=== PATIENT | male | born 1980 | race Caucasian/White ===

== ENCOUNTER 2023-03-29 13:20 | Inpatient (IN) ==
--- NOTE | 2023-03-29 13:27 | ED Triage Note ---
Date of Service March 29, 2023 History of Present Illness This patient was briefly evaluated while in triage. An abbreviated physical exam was performed. This patient is a 43-year-old Male who presents to the ED for evaluation of ongoing diarrhea for the past few weeks. He notes stool is now all water. He now notes abdominal pain. NO recent antibiotic use. Seen Monday at [facility]. Has been using [facility] Physical Exam GENERAL: 43 year old male. In no acute distress. SKIN: No lesions or rashes. HEART: Regular rate and rhythm. LUNGS: Clear to auscultation. ABDOMEN: Bowel sounds normoactive. No guarding or rigidity. No tenderness of palpation. NEURO: Alert and oriented. No deficits. MUSCULOSKELETAL: No deformities to inspection of the extremities. PSYCH: Patient is pleasant and answers all questions appropriately. Initial orders for labs and / or imaging were placed and patient was placed in the waiting area until a bed is available. Please see further documentation for the full ED course.
[2023-03-29 14:18] LABS: Hematocrit (blood only) 36.8 % (42.0-52.0); Hemoglobin 12.6 g/dl (14.0-18.0); Mean Corpuscular Hemoglobin 29.2 pg (25.0-34.0); Mean Corpuscular Hgb Conc 34.2 g/dL (32.0-36.0); Mean Corpuscular Volume 85.4 fL (80.0-100.0); Mean Platelet Volume 9.8 fL (9.4-12.4); Platelet Count 432 K/uL (130-400); RDW Coefficient of Variation 12.5 % (11.5-14.5); RDW Standard Deviation 39.3 fL (36.4-46.3); Red Blood Count 4.31 M/uL (4.70-6.10); White Blood Count 14.59 K/ul (4.8-10.8)
[2023-03-29 14:29] LABS: Anion Gap 10 (3-11); BUN Creatinine Ratio 9.7 (10-20); Blood Urea Nitrogen 9 mg/dl (6-23); Calcium 8.7 mg/dl (8.6-10.3); Carbon Dioxide 28 mmol/L (21-32); Chloride 94 mmol/L (98-107); Creatinine Clr Calc Pharmacy 88.7 ml/min; Est GFR (African American) 116.9 ml/min; Est GFR (Non-African American) 100.9 ml/min; Glucose 129 mg/dl (70-99(Fasting)); Potassium 3.4 mmol/L (3.5-5.1); Sodium 132 mmol/L (136-145)
[2023-03-29 14:30] LABS: Alanine Aminotransferase 15 U/L (7-52); Albumin Globulin Ratio 0.9 (0.9-2); Albumin Level 3.3 gm/dl (3.4-5.0); Alkaline Phosphatase 67 U/L (34-104); Aspartate Aminotransferase 13 U/L (13-39); Bilirubin,Total 0.4 mg/dl (0.2-1.0); Globulin 3.5 gm/dl (2.5-4.0); Lipase < 3 U/L (11-82); Magnesium 1.8 mg/dl (1.7-2.4); Total Protein 6.8 gm/dl (6.0-8.3)
[2023-03-29 14:42] LABS: Basophils # (auto) 0.05 K/uL (0-0.2); Basophils % (auto) 0.3 %; Eosinophils # (auto) 0.08 K/uL (0-0.50); Eosinophils % (auto) 0.5 %; Immature Granulocytes # (auto) 0.12 K/uL (0.01-0.20); Immature Granulocytes % (auto) 0.8 %; Lymphocytes # (auto) 1.02 K/uL (1.2-3.4); Monocytes # (auto) 1.73 K/uL (0.11-0.59); Monocytes % (auto) 11.9 %; Neutrophils # (auto) 11.59 K/uL (1.40-6.50); Neutrophils % (auto) 79.5 %
--- NOTE | 2023-03-29 15:35 | Emergency Department Note ---
Impression & Plan Colitis, Nausea vomiting and diarrhea ED Provider Note INFORMANT: Patient ED PROVIDER(S): Jack Madrigal DO CHIEF COMPLAINT: Diarrhea PLAN: Disposition: Admission Outpatient prescription management: none Discussion with: I spoke with the hospitalist, who will see the patient for admission/observation and further evaluation and consultation. MEDICAL DECISION MAKING: This is a 43-year-old male who presents to the ED with a chief complaint of diarrhea. The symptoms started initially about 3 weeks ago. He states that he would pass some liquid gas. The patient states that about 2 weeks ago he started having liquid stools fairly consistently. He also reports some abdominal pain for the past week. He also states that he has been passing some blood in his stools recently. He states that he feels tired. Imodium does not help. Reports a decreased appetite over the past few days with nausea with p.o. intake. He feels that his symptoms are worsening. He had some blood work and stool studies done on Monday at [facility]. His white blood cell count at that time was 23.3. Hemoglobin is 13.3. Platelet count was 450. E. coli and Shiga toxin was not detected. C. difficile was not detected. CT scan of abdomen pelvis reveals moderate wall thickening of the splenic flexure of the colon descending colon, sigmoid colon and proximal rectum with pericolonic stranding fluid. This could be nonspecific colitis although ulcerative colitis is also in the differential. Associated moderate dilatation of the ascending colon and transverse colon without bowel obstruction. Large amount of stool in the cecum and ascending colon. Prominent pericolonic and perirectal lymph nodes. Could be reactive although underlying neoplasm is hard to exclude. GI panel was negative. Leukocytosis today 14.59. Hemoglobin is 12.6. Chemistry panel showed no significant electrolyte abnormalities. Lipase was negative. The patient was told the results. Based on the patient's symptoms and overall evaluation abnormalities on imaging, I feel the patient would be best served by inpatient evaluation and GI investigation. Triage Nursing notes reviewed. Vital Signs: reviewed Prior /Outside records reviewed: Records from [facility] laboratory reviewed. Differential diagnosis: Dehydration, electrolyte abnormality,Inflammatory bowel disease, viral syndrome, other. Diagnostics, as interpreted by me: 12 lead ECG: none Cardiac Monitoring ordered: none Medical decision rules: none Imaging studies: CT scan of the abdomen pelvis: No obstruction. See radiologist report. Procedures: none. Critical care: none. HPI: See MDM above. PAST MEDICAL HISTORY: See Below PAST SURGICAL HISTORY: See Below SOCIAL HISTORY: See Below HOME MEDICATIONS:See Below ALLERGIES: See Below VITALS: See Below PHYSICAL EXAMINATION: See MDM for positive findings otherwise unremarkable. CONSTITUTIONAL/VITAL SIGNS: Reviewed GENERAL:done as appropriate INTEGUMENTARY: done as appropriate HEAD: done as appropriate EYES: done as appropriate RESPIRATORY: done as appropriate CARDIOVASCULAR:done as appropriate GI/ABDOMEN:done as appropriate EXTREMITIES: done as appropriate NEUROLOGICAL: done as appropriate PSYCHIATRIC:done as appropriate MUSCULOSKELETAL:done as appropriate TRIAGE NURSING DOCUMENTATION REVIEWED. Past Med/Surg History Social History Smoking Status: Never smoker Feels Safe at Home: Yes Allergies Allergies Allergy/AdvReac Type Severity Reaction Status Date / Time No Known Allergies Allergy Verified 03/29/23 15:39 Home Meds Home Medications Medication Instructions Recorded Confirmed loperamide 2 mg tablet 2 mg PO DIRECTED PRN Diarrhea 03/29/23 03/29/23 simethicone 125 mg capsule 125 mg PO DIRECTED PRN GAS 03/29/23 03/29/23 DISCOMFORT Results & Data (ED) Vital Signs Vital Signs - 24 hr 03/29/23 13:25 03/29/23 15:01 03/29/23 15:04 Temperature 37.2 C Temperature Source Temporal Artery Scan Pulse Rate 106 H 90 90 Pulse Rate from SpO2 Sensor 92 H 91 H Respiratory Rate 18 16 19 Respiratory Effort / Characteristics Non-Labored Spontaneous Respiratory Depth Normal Respiratory Pattern Regular Blood Pressure 113/70 Blood Pressure Mean 84 Blood Pressure Position Sitting Pulse Oximetry 99 99 98 Oxygen Delivery Method Room Air Sepsis Recent Fever Within 48 Hours No Sepsis New/Unexplained Change in Mental Status N/A Sepsis Action Taken by Nursing No Action Required 03/29/23 15:04 03/29/23 15:00 03/29/23 15:15 Temperature Temperature Source Pulse Rate 89 88 Pulse Rate from SpO2 Sensor 88 Respiratory Rate 17 Respiratory Effort / Characteristics Respiratory Depth Respiratory Pattern Blood Pressure 125/73 Blood Pressure Mean 92 Blood Pressure Position Pulse Oximetry 99 Oxygen Delivery Method Sepsis Recent Fever Within 48 Hours Sepsis New/Unexplained Change in Mental Status Sepsis Action Taken by Nursing 03/29/23 15:30 03/29/23 15:30 03/29/23 15:45 Temperature Temperature Source Pulse Rate 94 H Pulse Rate from SpO2 Sensor 95 H 84 Respiratory Rate 22 Respiratory Effort / Characteristics Respiratory Depth Respiratory Pattern Blood Pressure 120/77 Blood Pressure Mean 95 Blood Pressure Position Pulse Oximetry 99 99 Oxygen Delivery Method Sepsis Recent Fever Within 48 Hours Sepsis New/Unexplained Change in Mental Status Sepsis Action Taken by Nursing 03/29/23 16:00 03/29/23 16:15 03/29/23 16:30 Temperature Temperature Source Pulse Rate Pulse Rate from SpO2 Sensor 88 87 93 H Respiratory Rate Respiratory Effort / Characteristics Respiratory Depth Respiratory Pattern Blood Pressure Blood Pressure Mean Blood Pressure Position Pulse Oximetry 100 100 98 Oxygen Delivery Method Sepsis Recent Fever Within 48 Hours Sepsis New/Unexplained Change in Mental Status Sepsis Action Taken by Nursing 03/29/23 16:45 03/29/23 17:00 03/29/23 17:15 Temperature Temperature Source Pulse Rate Pulse Rate from SpO2 Sensor 86 86 84 Respiratory Rate Respiratory Effort / Characteristics Respiratory Depth Respiratory Pattern Blood Pressure Blood Pressure Mean Blood Pressure Position Pulse Oximetry 100 100 100 Oxygen Delivery Method Sepsis Recent Fever Within 48 Hours Sepsis New/Unexplained Change in Mental Status Sepsis Action Taken by Nursing 03/29/23 17:30 03/29/23 17:45 03/29/23 18:01 Temperature Temperature Source Pulse Rate 87 98 H Pulse Rate from SpO2 Sensor 85 86 Respiratory Rate 19 21 Respiratory Effort / Characteristics Respiratory Depth Respiratory Pattern Blood Pressure Blood Pressure Mean Blood Pressure Position Pulse Oximetry 98 100 Oxygen Delivery Method Sepsis Recent Fever Within 48 Hours Sepsis New/Unexplained Change in Mental Status Sepsis Action Taken by Nursing 03/29/23 18:15 03/29/23 18:30 03/29/23 18:30 Temperature Temperature Source Pulse Rate 89 91 H Pulse Rate from SpO2 Sensor Respiratory Rate 18 20 Respiratory Effort / Characteristics Respiratory Depth Respiratory Pattern Blood Pressure 117/73 Blood Pressure Mean 83 Blood Pressure Position Pulse Oximetry Oxygen Delivery Method Sepsis Recent Fever Within 48 Hours Sepsis New/Unexplained Change in Mental Status Sepsis Action Taken by Nursing Laboratory Data 03/29/23 13:32 03/29/23 13:32 Lab Results 03/29/23 03/29/23 03/29/23 Range/Units 13:32 13:32 16:07 WBC 14.59 H (4.8-10.8) K/ul RBC 4.31 L (4.70-6.10) M/uL Hgb 12.6 L (14.0-18.0) g/dl Hct 36.8 L (42.0-52.0) % MCV 85.4 (80.0-100.0) fL MCH 29.2 (25.0-34.0) pg MCHC 34.2 (32.0-36.0) g/dL RDW Std Deviation 39.3 (36.4-46.3) fL RDW Coeff of Teresita 12.5 (11.5-14.5) % Plt Count 432 H (130-400) K/uL MPV 9.8 (9.4-12.4) fL Immature Gran % (Auto) 0.8 % Neut % (Auto) 79.5 % Lymph % (Auto) 7.0 % Vance % (Auto) 11.9 % Eos % (Auto) 0.5 % Baso % (Auto) 0.3 % Neut # (Auto) 11.59 H (1.40-6.50) K/uL Lymph # (Auto) 1.02 L (1.2-3.4) K/uL Vance # (Auto) 1.73 H (0.11-0.59) K/uL Eos # (Auto) 0.08 (0-0.50) K/uL Baso # (Auto) 0.05 (0-0.2) K/uL Immature Gran # (Auto) 0.12 (0.01-0.20) K/uL Sodium 132 L (136-145) mmol/L Potassium 3.4 L (3.5-5.1) mmol/L Chloride 94 L (98-107) mmol/L Carbon Dioxide 28 (21-32) mmol/L Anion Gap 10 (3-11) BUN 9 (6-23) mg/dl Creatinine 0.93 (0.6-1.4) mg/dl Est Cr Clr Drug Dosing 88.7 ml/min Est GFR ( Amer) 116.9 ml/min Est GFR (Non-Af Amer) 100.9 ml/min BUN/Creatinine Ratio 9.7 L (10-20) Glucose 129 H (70-99(Fasting)) mg/dl Calcium 8.7 (8.6-10.3) mg/dl Magnesium 1.8 (1.7-2.4) mg/dl Total Bilirubin 0.4 (0.2-1.0) mg/dl AST 13 (13-39) U/L ALT 15 (7-52) U/L Alkaline Phosphatase 67 (34-104) U/L Total Protein 6.8 (6.0-8.3) gm/dl Albumin 3.3 L (3.4-5.0) gm/dl Globulin 3.5 (2.5-4.0) gm/dl Albumin/Globulin Ratio 0.9 (0.9-2) Lipase < 3 L (11-82) U/L Stl C. cayetanensis PCR (NotDetected) Stool Rotavirus A PCR (NotDetected) Stl Adenov F 40/41 PCR (NotDetected) Stool Astrovirus (PCR) (NotDetected) Stool Campylobacter PCR (NotDetected) Stl C. diff Tox B Gene Negative Cdiff Gene (Neg) Stool Cryptosporidium PCR (NotDetected) Stl E.coli Shiga Tox PCR (NotDetected) Stl Enterotoxigenic E PCR (NotDetected) Stool EPEC (PCR) (NotDetected) Stool EAEC (PCR) (NotDetected) Stl E. histolytica PCR (NotDetected) Stool Giardia Lamblia PCR (NotDetected) Stool Salmonella PCR (NotDetected) Stool Sapovirus (PCR) (NotDetected) Stl P. shigelloides PCR (NotDetected) Stl Shigella/EIEC PCR (NotDetected) St Y.enterocolitica PCR (NotDetected) Stool Vibrio (PCR) (NotDetected) Stl Vibrio cholerae PCR (NotDetected) Stl Norovirus GI/GII PCR (NotDetected) 03/29/23 Range/Units 16:07 WBC (4.8-10.8) K/ul RBC (4.70-6.10) M/uL Hgb (14.0-18.0) g/dl Hct (42.0-52.0) % MCV (80.0-100.0) fL MCH (25.0-34.0) pg MCHC (32.0-36.0) g/dL RDW Std Deviation (36.4-46.3) fL RDW Coeff of Teresita (11.5-14.5) % Plt Count (130-400) K/uL MPV (9.4-12.4) fL Immature Gran % (Auto) % Neut % (Auto) % Lymph % (Auto) % Vance % (Auto) % Eos % (Auto) % Baso % (Auto) % Neut # (Auto) (1.40-6.50) K/uL Lymph # (Auto) (1.2-3.4) K/uL Vance # (Auto) (0.11-0.59) K/uL Eos # (Auto) (0-0.50) K/uL Baso # (Auto) (0-0.2) K/uL Immature Gran # (Auto) (0.01-0.20) K/uL Sodium (136-145) mmol/L Potassium (3.5-5.1) mmol/L Chloride (98-107) mmol/L Carbon Dioxide (21-32) mmol/L Anion Gap (3-11) BUN (6-23) mg/dl Creatinine (0.6-1.4) mg/dl Est Cr Clr Drug Dosing ml/min Est GFR ( Amer) ml/min Est GFR (Non-Af Amer) ml/min BUN/Creatinine Ratio (10-20) Glucose (70-99(Fasting)) mg/dl Calcium (8.6-10.3) mg/dl Magnesium (1.7-2.4) mg/dl Total Bilirubin (0.2-1.0) mg/dl AST (13-39) U/L ALT (7-52) U/L Alkaline Phosphatase (34-104) U/L Total Protein (6.0-8.3) gm/dl Albumin (3.4-5.0) gm/dl Globulin (2.5-4.0) gm/dl Albumin/Globulin Ratio (0.9-2) Lipase (11-82) U/L Stl C. cayetanensis PCR Not Detected (NotDetected) Stool Rotavirus A PCR Not Detected (NotDetected) Stl Adenov F 40/41 PCR Not Detected (NotDetected) Stool Astrovirus (PCR) Not Detected (NotDetected) Stool Campylobacter PCR Not Detected (NotDetected) Stl C. diff Tox B Gene (Neg) Stool Cryptosporidium PCR Not Detected (NotDetected) Stl E.coli Shiga Tox PCR Not Detected (NotDetected) Stl Enterotoxigenic E PCR Not Detected (NotDetected) Stool EPEC (PCR) Not Detected (NotDetected) Stool EAEC (PCR) Not Detected (NotDetected) Stl E. histolytica PCR Not Detected (NotDetected) Stool Giardia Lamblia PCR Not Detected (NotDetected) Stool Salmonella PCR Not Detected (NotDetected) Stool Sapovirus (PCR) Not Detected (NotDetected) Stl P. shigelloides PCR Not Detected (NotDetected) Stl Shigella/EIEC PCR Not Detected (NotDetected) St Y.enterocolitica PCR Not Detected (NotDetected) Stool Vibrio (PCR) Not Detected (NotDetected) Stl Vibrio cholerae PCR Not Detected (NotDetected) Stl Norovirus GI/GII PCR Not Detected (NotDetected) Administered Medications Discontinued Medications Ioversol (Optiray 320 100ml) 88 ml IV ONCE ONE Stop: 03/29/23 17:59 Last Admin: 03/29/23 17:59 Dose: 88 ml Documented By: YAMILETH Imaging Data Radiologist's Impression: Abdomen/Pelvis CT 03/29/23 14:35 CT OF THE ABDOMEN AND PELVIS WITH CONTRAST CLINICAL HISTORY: diarrhea, blood in stools, weight loss COMPARISON STUDY: None. TECHNIQUE: Following IV administration of 88 mL of Optiray, axial images of the abdomen and pelvis were obtained from the lung bases to the proximal femurs. Images were reviewed in the axial, sagittal, and coronal planes. IV contrast was administered without complication. Automated exposure control was utilized for the study. A dose lowering technique was utilized adhering to the principles of ALARA. Oral contrast was administered. CT DOSE: 455.26 mGy.cm FINDINGS: Lung bases are unremarkable. No pneumatosis, free air or portal venous gas is present. The liver, spleen, adrenal glands, kidneys and pancreas are unremarkable. There is no biliary or pancreatic ductal dilatation. There are gallstones within the gallbladder. The gallbladder is not distended. Note is made of moderate wall thickening of the splenic flexure of the colon, the descending colon and the sigmoid colon and proximal rectum with pericolonic stra nding and trace pericolonic fluid. There is a large amount stool within the cecum and ascending colon. The ascending colon and transverse colon are mildly dilated. No well-defined transition point is identified. There is no abscess. Note is made of a mildly enlarged left pelvic sidewall lymph node on image [phone] of [phone] that measures 1.2 x 1 cm. There are additional prominent perirectal/pericolonic lymph nodes. Major vasculature is patent. IMPRESSION: 1. Moderate wall thickening of the splenic flexure of the colon, the descending colon, sigmoid colon and proximal rectum with pericolonic stranding and fluid. The finding represents a nonspecific colitis. Differential considerations include an infectious colitis. Ulcerative colitis is also within the differential. Associated moderate dilatation of the ascending colon and transverse colon without convincing evidence for a bowel obstruction. Large amount of stool within the cecum and ascending colon. 2. Prominent pericolonic and perirectal lymph nodes, including a left pelvic sidewall lymph node. These may be reactive. However, an occult underlying neoplasm within the colon would be difficult to exclude. GI consultation for consideration for nonemergent colonoscopy is recommended. 3. Cholelithiasis. ACT 112: Positive. There are findings on this exam that require communication between the performing entity and the patient following Patient Test Result Information Act ([place] Act 112) guidelines. Electronically signed by: Chris Amaya M.D. 03/29/2023 6:26 PM Discharge Plan Visit Data Chief Complaint: Diarrhea Stated Complaint: DIARRHEA,NAUSEA,ABDOMINAL PAIN,LETHARGIC ED Provider: Jack Madrigal Discharge Problem: Colitis, Nausea vomiting and diarrhea Patient Disposition: Being Evaluated by Hospitalist Forms Stand Alone Forms: [facility] Prescriptions Prescriptions: No Action loperamide [Anti-Diarrhea] 2 mg Tablet 2 mg PO DIRECTED PRN (Reason: Diarrhea) simethicone [Anti-Gas] 125 mg Capsule 125 mg PO DIRECTED PRN (Reason: GAS DISCOMFORT) Referrals Referrals: PCP,NO [Primary Care Provider] -
[2023-03-29 17:58] LABS: Adenovirus F 40/41 PCR Not Detected (NotDetected); Astrovirus PCR Not Detected (NotDetected); Campylobacter PCR Not Detected (NotDetected); Cryptosporidium PCR Not Detected (NotDetected); Cyclospora cayetanensis PCR Not Detected (NotDetected); Entamoeba histolytica PCR Not Detected (NotDetected); Enteroaggregative E.coli(EAEC) Not Detected (NotDetected); Enteropathogenic E.coli (EPEC) Not Detected (NotDetected); Enterotoxigenic E.coli (ETEC) Not Detected (NotDetected); Giardia lamblia PCR Not Detected (NotDetected); Norovirus GI/GII PCR Not Detected (NotDetected); Plesiomonas shigelloides PCR Not Detected (NotDetected); Rotavirus A PCR Not Detected (NotDetected); Salmonella PCR Not Detected (NotDetected); Sapovirus PCR Not Detected (NotDetected); Shiga-like Toxin E.coli (STEC) Not Detected (NotDetected); Shigella/Enteroinvasive E.coli Not Detected (NotDetected); Vibrio cholerae PCR Not Detected (NotDetected); Vibrio species PCR Not Detected (NotDetected); Yersinia enterocolitica PCR Not Detected (NotDetected)
[2023-03-29] MEDS ORDERED: OPTIRAY 320 100ml IV ONE (17:58)
--- NOTE | 2023-03-29 18:28 | CT Scan Report ---
CT OF THE ABDOMEN AND PELVIS WITH CONTRAST CLINICAL HISTORY: diarrhea, blood in stools, weight loss COMPARISON STUDY: None. TECHNIQUE: Following IV administration of 88 mL of Optiray, axial images of the abdomen and pelvis we re obtained from the lung bases to the proximal femurs. Images were reviewed in the axial, sagittal, and coronal planes. IV contrast was administered without complication. Automated exposure control wa s utilized for the study. A dose lowering technique was utilized adhering to the principles of ALARA . Oral contrast was administered. CT DOSE: 455.26 mGy.cm FINDINGS: Lung bases are unremarkable. No pneumatosis, free air or portal venous gas is present. The liver, spleen, adrenal glands, kidneys and pancreas are unremarkable. There is no biliary or pancreat ic ductal dilatation. There are gallstones within the gallbladder. The gallbladder is not distended. Note is made of moderate wall thickening of the splenic flexure of the colon, the descending colon an d the sigmoid colon and proximal rectum with pericolonic stranding and trace pericolonic fluid. There is a large amount stool within the cecum and ascending colon. The ascending colon and transverse col on are mildly dilated. No well-defined transition point is identified. There is no abscess. Note is m aziza of a mildly enlarged left pelvic sidewall lymph node on image [phone] of [phone] that measures 1.2 x 1 cm . There are additional prominent perirectal/pericolonic lymph nodes. Major vasculature is patent. IMPRESSION: 1. Moderate wall thickening of the splenic flexure of the colon, the descending colon, sigmoid colon and proximal rectum with pericolonic stranding and fluid. The finding represents a nonspecific coliti s. Differential considerations include an infectious colitis. Ulcerative colitis is also within the d ifferential. Associated moderate dilatation of the ascending colon and transverse colon without convi ncing evidence for a bowel obstruction. Large amount of stool within the cecum and ascending colon. 2. Prominent pericolonic and perirectal lymph nodes, including a left pelvic sidewall lymph node. The se may be reactive. However, an occult underlying neoplasm within the colon would be difficult to exc lude. GI consultation for consideration for nonemergent colonoscopy is recommended. 3. Cholelithiasis. ACT 112: Positive. There are findings on this exam that require communication between the performing entity and the patient following Patient Test Result Information Act ([place] Act 112) guidelines. Electronically signed by: Chris Amaya M.D. 03/29/2023 6:26 PM
[2023-03-29] MEDS ORDERED: SODIUM CHLORIDE 0.9% 1000ML 1,000 ML IV ONE (19:00)
[2023-03-29 19:43] LABS: Appearance Urine Clear (Clear); Bilirubin Urine Negative (Negative); Blood Urine Negative (Negative); Color Urine Yellow; Glucose Urine UA Negative (Negative); Ketones Urine Negative (Negative); Leukocyte Esterase Urine Negative (Negative); Nitrite Urine Negative (Negative); Protein Urine Negative (Negative); Specific Gravity Urine > 1.045 (1.000-1.030); Urobilinogen Urine Negative (Negative)
--- NOTE | 2023-03-29 19:51 | History & Physical Report ---
Date of Service March 29, 2023 Assessment & Plan (1) Colitis: Plan: -CTAP with findings suggestive of nonspecific colitis although UC in differential -Stool studies negative -Pt with leukocytosis on admission and elevated CRP from PCP labs. Ordered ESR, CRP, fecal calprotectin -Pt currently hemodynamically stable, afebrile -Supportive care- IVF hydration, Tylenol PRN pain, Zofran PRN nausea -Clear liquid diet, advance as tolerated -GI consult placed for evaluation of potential IBD -F/u on rest of outpatient labs at [facility] -Pt will need follow-up colonoscopy as outpatient (2) Hypokalemia: Plan: -K 3.2 on admission, likely 2/2 GI losses -Repleted on admission -Monitor BMP (3) Hyponatremia: Plan: -Na 132, likely due to poor oral intake -NSS hydration -Monitor BMP (4) Dehydration: Plan: -Pt with weeks of GI losses and reduced oral intake -NSS + KCl repletion ongoing (5) Anemia: Plan: -Hgb 12.6 on admission -Mild normocytic anemia -Suspect due to bleeding hemorrhoid, lower suspicion for occult GI bleed -Trend CBC Plan FENGI: Clear liquids Code status: Full DVT ppx: SCDs, deferring chemoprophylaxis given hematochezia Isolation: None Dispo: Medical/surgical History of Present Illness Chief Complaint: diarrhea Primary Care Provider: DARYL PCP Pt is 43 yo M with PMH internal hemorrhoids presenting with diarrhea. Notes onset 3 weeks prior of watery diarrhea and associated bloating, generalized abdominal pain, nausea w/o emesis, subjective fevers, chills. Denies recent travel, sick contacts or change in diet. Over past week his symptoms worsened to include hematochezia and reduced appetite. Reports 4+ movements per day, no relief from imodium. Pt did see PCP on 03/27 who ordered labs and stool studies- WBC 23 w/ neutrophilic predominance, CRP > 10, negative IgA, TTG studies (several other studies still pending), negative stool studies including E Coli and C difficile. Pt's symptoms continued to worsen and he came to ER for evaluation. Pt arrived to ER hemodynamically stable. Initial evaluation significant for WBC 15, Hgb 12.6, Na 132, K 3.4. Negative stool PCR. CTAP suggesting nonspecific colitis although ulcerative colitis in differential, dilatation of ascending and transverse colon without obstruction, large amount of stool in cecum and ascending colon, prominent pericolonic and perirectal lymph nodes which may be reactive but underlying neoplasm hard to exclude. ER interventions include 1L NSS bolus. At present, pt reports continued moderate abdominal pain and diarrhea. He does state he's had intermittent diarrhea and abdominal cramps for much of his life but denies any history of IBD in his family. Did have colonoscopy 6-7 years prior which showed internal hemorrhoids. Allergies Allergy/AdvReac Type Severity Reaction Status Date / Time No Known Allergies Allergy Verified 03/29/23 15:39 Home Medications Medication Instructions Recorded Confirmed Type loperamide 2 mg tablet 2 mg PO DIRECTED PRN Diarrhea 03/29/23 03/29/23 History simethicone 125 mg capsule 125 mg PO DIRECTED PRN GAS 03/29/23 03/29/23 History DISCOMFORT Past Med/Surg History Social History Smoking Status: Never smoker Hx Alcohol Use: No Hx Substance Use: No Preferred Language: Albanian Communication Ability: Effective Service Operator Required: No Beliefs That Will Affect Care: None Current Living Situation: Alone Other Information That Helps Us Care for You: No Feels Safe at Home: Yes Safety Concerns: Feels Safe At This Time Assistive Devices: None Review of Systems Review of Systems: Per HPI/Subjective Physical Exam Physical Exam: General: well-appearing, no acute distress HEENT: PERRL, EOMI, conjunctivae clear without injection, anicteric sclerae, moist mucous membranes, clear oropharynx without exudate or erythema Neck: supple, trachea midline, no thyromegaly, no JVD, no cervical lymphadenopathy CV: RRR, normal S1 and S2, no murmurs Resp: CTAB, no increased work of breathing, no crackles or wheezes Abd: Soft, nontender, nondistended, no guarding or rebound, no hepatosplenomegaly, hyperactive bowel sounds MSK: Normal bulk of all four extremities Neuro: AOx3, no focal motor or sensory deficits Skin: no rashes or lesions, warm and dry Ext: no LE peripheral edema or erythema, capillary refill <2s in all four extremities, 2+ LE peripheral pulses b/l Results & Data Results & Data Vital Signs (Past 12 Hours) Vital Signs Temp Pulse Resp BP Pulse Ox O2 Del Method 03/29/23 19:15 91 H 17 03/29/23 19:00 92 H 15 03/29/23 19:00 122/73 03/29/23 18:45 86 24 03/29/23 18:30 91 H 20 03/29/23 18:30 117/73 03/29/23 18:15 89 18 03/29/23 18:01 98 H 21 03/29/23 17:45 87 19 100 03/29/23 17:30 98 03/29/23 17:15 100 03/29/23 17:00 100 03/29/23 16:45 100 03/29/23 16:30 98 03/29/23 16:15 100 03/29/23 16:00 100 03/29/23 15:45 99 03/29/23 15:30 94 H 22 99 03/29/23 15:30 120/77 03/29/23 15:15 88 17 99 03/29/23 15:00 89 03/29/23 15:04 125/73 03/29/23 15:04 90 19 98 03/29/23 15:01 90 16 99 03/29/23 13:25 37.2 C 106 H 18 113/70 99 Room Air Code Status & VTE Plan VTE Prophylaxis Plan VTE Prophylaxis will be ordered: Yes Supervising Physician Co-Signing Physician Notes Nonspecific colitis- As noted on CT abdomen/pelvis Stool PCR negative Clear liquid diet IV fluids as noted Consult gastroenterology, will need colonoscopy. Reports having a colonoscopy primarily showing hemorrhoids in 2016 Differential includes but not limited to inflammatory bowel disease, viral, infectious, other Hypokalemia/dehydration- Potassium 3.4 on admission Placed on IV fluids as noted, normal saline + KCl 20 mg once at 100 mils per hour recheck laboratories in a.m. Remaining orders and notations as noted Resident Activity Tracking Resident Involvement: Resident Care Provided Care Provided: Adult Hospital Medicine
[2023-03-29] MEDS ORDERED: ONDANSETRON INJ 2 MG/ML 2 ML VIAL IV PRN (23:01)
[2023-03-29] MEDS ORDERED: ACETAMINOPHEN 1,000 MG/100 ML VIAL IV PRN (23:01)
[2023-03-29] MEDS ORDERED: SIMETHICONE 80 MG CHEW PO PRN (23:35)
[2023-03-29] MEDS: NSS + 20MEQ KCL 20 MEQ/1,000 ML BAG IV SCH (23:46)
--- NOTE | 2023-03-30 | Communication Note ---
Date of Service: March 29, 2023 Pt COVID swab returned positive. Isolation precautions ordered. Deferring steroids/remdesivir at present. Stable respiratory status on RA.
[2023-03-30] MEDS ORDERED: cefTRIAXone SODIUM 2,000 MG in DEXTROSE 5% AD-VAN 50 ML IV SCH (02:00)
[2023-03-30] MEDS: cefTRIAXone SODIUM 1,000 MG in DEXTROSE 5% AD-VAN 50 ML IV SCH (02:06)
[2023-03-30] MEDS: metroNIDAZOLE 500 MG/100 ML BAG IV SCH ×3 (02:38→18:07)
[2023-03-30 07:01] LABS: Hematocrit (blood only) 33.2 % (42.0-52.0); Hemoglobin 11.3 g/dl (14.0-18.0); Mean Corpuscular Hemoglobin 29.4 pg (25.0-34.0); Mean Corpuscular Volume 86.2 fL (80.0-100.0); Mean Platelet Volume 9.5 fL (9.4-12.4); Platelet Count 352 K/uL (130-400); RDW Coefficient of Variation 12.6 % (11.5-14.5); RDW Standard Deviation 39.6 fL (36.4-46.3); Red Blood Count 3.85 M/uL (4.70-6.10); White Blood Count 11.74 K/ul (4.8-10.8)
[2023-03-30 07:32] LABS: BUN Creatinine Ratio 12.7 (10-20); C Reactive Protein 17.42 mg/dl (0-0.5); Calcium 7.9 mg/dl (8.6-10.3); Creatinine Clr Calc Pharmacy 116.2 ml/min; Est GFR (African American) 134.1 ml/min; Est GFR (Non-African American) 115.7 ml/min; Magnesium 1.9 mg/dl (1.7-2.4); Phosphorus 2.5 mg/dl (2.5-4.9); Potassium 3.5 mmol/L (3.5-5.1)
[2023-03-30 07:41] LABS: Basophils # (auto) 0.04 K/uL (0-0.2); Basophils % (auto) 0.3 %; Dohle Bodies 1+; Eosinophils # (auto) 0.04 K/uL (0-0.50); Eosinophils % (auto) 0.3 %; Immature Granulocytes # (auto) 0.06 K/uL (0.01-0.20); Immature Granulocytes % (auto) 0.5 %; Lymphocytes # (auto) 0.73 K/uL (1.2-3.4); Lymphocytes % (auto) 6.2 %; Monocytes # (auto) 1.81 K/uL (0.11-0.59); Monocytes % (auto) 15.4 %; Neutrophils # (auto) 9.06 K/uL (1.40-6.50); Neutrophils % (auto) 77.3 %
--- NOTE | 2023-03-30 09:51 | Communication Note ---
Date of Service: March 30, 2023 Patient is a 43 year old male who presented to the ED with complaints of 3 weeks of diarrhea, generalized abdominal pain, bloating, nausea, vomiting, fevers, chills, and hematochezia. He had evaluation in the ED and stool biofire testing was negative. CT of abdomen and pelvis shown moderate wall thickening of the splenix flexure of the colon, the descending colon, sigmoid colon, and proximal rectum with pericolonic stranding and fluid representing a nonspecific colitis. differential includes infectious colitis as well as UC. There is also associated moderate dilation of the ascending colon and transverse colon without convincing evidence for a bowel obstruction. large amount of stool within the cecum and the ascending colon. There is prominent pericolonic and perirectal lymph nodes, unclduing a left pelvic sidewall lymph node. these may be reactive however an occult underlying neoplasm within the colon would be difficult to exclude. nonemergenct colonoscopy is recommended. Since evaluation here he was found to be covid positive. Discussed case with Dr. Posada who advised on plan. This may be more infectious in nature. Would continue with ceftriaxone/flagyl. Leukocytosis is improving. Patient will need outpatient colonoscopy once recovered from Covid. Exam deferred given positive covid results.
[2023-03-30] MEDS: NSS + 20MEQ KCL 20 MEQ/1,000 ML BAG IV SCH (10:34)
--- NOTE | 2023-03-30 16:23 | Hospitalist Progress Note ---
Date of Service March 30, 2023 Assessment & Plan (1) Colitis: Plan: -CTAP with findings suggestive of nonspecific colitis although UC in differential -Stool studies negative -Pt with leukocytosis on admission and elevated CRP from PCP labs. Ordered ESR, CRP, fecal calprotectin. White count coming down. -Pt currently hemodynamically stable, afebrile -Supportive care- IVF hydration, Tylenol PRN pain, Zofran PRN nausea -Clear liquid diet, advance as tolerated Continue ceftriaxone and Flagyl -GI consult placed for evaluation of potential IBD. GI leaning towards infectious cause. -F/u on rest of outpatient labs at [facility] -Pt will need follow-up colonoscopy as outpatient (2) Hypokalemia: Plan: -K 3.2 on admission, likely 2/2 GI losses -Repleted on admission -Monitor BMP (3) Hyponatremia: Plan: -Na 132, likely due to poor oral intake -NSS hydration -Monitor BMP Improved (4) Dehydration: Plan: -Pt with weeks of GI losses and reduced oral intake -NSS + KCl repletion ongoing (5) Anemia: Plan: -Hgb 12.6 on admission -Mild normocytic anemia -Suspect due to bleeding hemorrhoid, lower suspicion for occult GI bleed -Trend CBC (6) COVID-19: Plan: Tested positive Asymptomatic Monitor clinically Plan FENGI: Clear liquids Code status: Full DVT ppx: SCDs, deferring chemoprophylaxis given hematochezia Isolation: None Dispo: Medical/surgical Admission and Anticipated Discharge Date Admission Date: March 29, 2023 Subjective Patient feels slightly better. However still having diarrhea. Abdominal pain is improving. No shortness of breath or cough. No chest pain. He tested positive for COVID but he is completely asymptomatic. Review of Systems Review of Systems: All systems reviewed & are unremarkable except as noted in Subjective Physical Exam Physical Exam: General: Awake, conversant Heart: S1, S2/regular rate and rhythm, no murmur rubs or gallops Lungs: Clear to auscultation bilaterally. Normal effort Abdomen: Soft/nontender/nondistended. No hepatosplenomegaly Extremities: No clubbing/cyanosis. No edema Behavior: Appropriate, cooperative Results & Data Results & Data Vital Signs (Past 12 Hours) Vital Signs Temp Pulse Resp BP Pulse Ox O2 Del Method 05/25/23 08:51 37.5 C 89 18 113/72 96 Room Air PG Care Time/CCT Total # of Minutes Spent Total Time Spent with Patient: Total time spent is greater than 50% in coordination of care (as documented) at patient's floor/unit and/or counseling patient: Coding Level of Care Code 18560 SUB INP/OBS CARE 2/35MIN Diagnoses Colitis K52.9 Hypokalemia E87.6 Hyponatremia E87.1 Dehydration E86.0 Anemia D64.9 COVID-19 U07.1
--- NOTE | 2023-03-30 22:01 | Billing Data ---
Date of Service March 30, 2023 Coding Level of Care Code 72109 INT INP/OBS CARE
[2023-03-31] MEDS: cefTRIAXone SODIUM 1,000 MG in DEXTROSE 5% AD-VAN 50 ML IV SCH (01:05)
[2023-03-31] MEDS: metroNIDAZOLE 500 MG/100 ML BAG IV SCH ×3 (01:38→19:55)
[2023-03-31 09:57] LABS: Hematocrit (blood only) 35.5 % (42.0-52.0); Hemoglobin 11.9 g/dl (14.0-18.0); Mean Corpuscular Hemoglobin 29.2 pg (25.0-34.0); Mean Corpuscular Hgb Conc 33.5 g/dL (32.0-36.0); Mean Platelet Volume 9.6 fL (9.4-12.4); Platelet Count 403 K/uL (130-400); RDW Standard Deviation 41.5 fL (36.4-46.3); Red Blood Count 4.08 M/uL (4.70-6.10); White Blood Count 10.41 K/ul (4.8-10.8)
[2023-03-31 10:13] LABS: BUN Creatinine Ratio 9.3 (10-20); Calcium 7.7 mg/dl (8.6-10.3); Est GFR (African American) 131.1 ml/min; Est GFR (Non-African American) 113.1 ml/min; Potassium 3.4 mmol/L (3.5-5.1)
--- NOTE | 2023-03-31 16:49 | Hospitalist Progress Note ---
Date of Service March 31, 2023 Assessment & Plan (1) Colitis: Plan: -CTAP with findings suggestive of nonspecific colitis although UC in differential -Stool studies negative -Pt with leukocytosis on admission and elevated CRP from PCP labs. Ordered ESR, CRP, fecal calprotectin. Clinically improving slowly Leukocytosis resolved -Supportive care- IVF hydration, Tylenol PRN pain, Zofran PRN nausea -Clear liquid diet, advance as tolerated Continue ceftriaxone and Flagyl -GI consult placed for evaluation of potential IBD. GI leaning towards infectious cause. -F/u on rest of outpatient labs at [facility] -Pt will need follow-up colonoscopy as outpatient (2) Hypokalemia: Plan: -K 3.2 on admission, likely 2/2 GI losses -Replete -Monitor BMP (3) Hyponatremia: Plan: -Improved -NSS hydration -Monitor BMP Improved (4) Dehydration: Plan: -Pt with weeks of GI losses and reduced oral intake -NSS + KCl repletion ongoing (5) Anemia: Plan: -Hgb 12.6 on admission -Mild normocytic anemia -Suspect due to bleeding hemorrhoid, lower suspicion for occult GI bleed -Trend CBC (6) COVID-19: Plan: Tested positive Asymptomatic Monitor clinically Plan FENGI: Clear liquids Code status: Full DVT ppx: SCDs, deferring chemoprophylaxis given hematochezia Isolation: None Dispo: Medical/surgical Admission and Anticipated Discharge Date Admission Date: March 31, 2023 Subjective Patient had fever spikes overnight. Abdominal pain much improved. Still having ongoing diarrhea. Frequency improved but consistency is still the same. Low appetite. Review of Systems Review of Systems: All systems reviewed & are unremarkable except as noted in Subjective Physical Exam Physical Exam: General: Awake, conversant Heart: S1, S2/regular rate and rhythm, no murmur rubs or gallops Lungs: Clear to auscultation bilaterally. Normal effort Abdomen: Soft/nondistended. Mild tenderness to palpation in the lower abdomen with no rebound, rigidity or guarding. No hepatosplenomegaly Extremities: No clubbing/cyanosis. No edema Behavior: Appropriate, cooperative Results & Data Results & Data Vital Signs (Past 12 Hours) Vital Signs Temp Pulse Pulse Resp BP BP Pulse Ox 03/31/23 16:05 36.9 C 90 16 126/78 99 03/31/23 08:36 36.5 C 90 16 114/74 99 O2 Del Method 03/31/23 16:05 Room Air 03/31/23 08:36 Room Air Laboratory Results Abnormal lab results 03/31/23 03/31/23 Range/Units 09:33 09:33 RBC 4.08 L (4.70-6.10) M/uL Hgb 11.9 L (14.0-18.0) g/dl Hct 35.5 L (42.0-52.0) % Plt Count 403 H (130-400) K/uL Sodium 134 L (136-145) mmol/L Potassium 3.4 L (3.5-5.1) mmol/L BUN/Creatinine Ratio 9.3 L (10-20) Glucose 139 H (70-99(Fasting)) mg/dl Calcium 7.7 L (8.6-10.3) mg/dl PG Care Time/CCT Total # of Minutes Spent Total Time Spent with Patient: Total time spent is greater than 50% in coordination of care (as documented) at patient's floor/unit and/or counseling patient: Coding Level of Care Code 65831 SUB INP/OBS CARE 235MIN Diagnoses Colitis K52.9 Hypokalemia E87.6 Hyponatremia E87.1 Dehydration E86.0 Anemia D64.9 COVID-19 U07.1
[2023-03-31] MEDS: NSS + 20MEQ KCL 20 MEQ/1,000 ML BAG IV SCH (18:02)
[2023-04-01] MEDS: cefTRIAXone SODIUM 1,000 MG in DEXTROSE 5% AD-VAN 50 ML IV SCH (02:25)
[2023-04-01] MEDS: metroNIDAZOLE 500 MG/100 ML BAG IV SCH ×3 (02:59→18:33)
[2023-04-01] MEDS: NSS + 20MEQ KCL 20 MEQ/1,000 ML BAG IV SCH ×2 (05:54→17:58)
[2023-04-01 06:40] LABS: Hemoglobin 11.7 g/dl (14.0-18.0); Mean Corpuscular Hemoglobin 29.5 pg (25.0-34.0); Mean Corpuscular Hgb Conc 34.4 g/dL (32.0-36.0); Mean Corpuscular Volume 85.9 fL (80.0-100.0); Mean Platelet Volume 9.6 fL (9.4-12.4); Platelet Count 423 K/uL (130-400); RDW Coefficient of Variation 12.9 % (11.5-14.5); RDW Standard Deviation 40.7 fL (36.4-46.3); Red Blood Count 3.96 M/uL (4.70-6.10); White Blood Count 12.07 K/ul (4.8-10.8)
[2023-04-01 07:14] LABS: BUN Creatinine Ratio 9.8 (10-20); Calcium 7.9 mg/dl (8.6-10.3); Creatinine Clr Calc Pharmacy 135.2 ml/min; Est GFR (African American) 142.8 ml/min; Est GFR (Non-African American) 123.2 ml/min; Potassium 3.4 mmol/L (3.5-5.1)
[2023-04-01] MEDS ORDERED: POTASSIUM CHLORIDE CRTAB 20 MEQ TABCR PO STA (08:40)
--- NOTE | 2023-04-01 13:03 | Hospitalist Progress Note ---
Date of Service April 01, 2023 Assessment & Plan (1) Colitis: Plan: -CTAP with findings suggestive of nonspecific colitis although UC in differential -Stool studies negative -Pt with leukocytosis on admission and elevated CRP from PCP labs. Ordered ESR, CRP, fecal calprotectin. Diarrhea improving Leukocytosis resolved However today he complains of distended abdomen. Abdominal x-ray shows findings suggestive of paralytic ileus. We will make him n.p.o. for bowel rest Increase IV fluid rate to 100 mL/h Treat hypokalemia Continue Zofran as needed, Tylenol as needed Continue ceftriaxone and Flagyl -GI consult placed for evaluation of potential IBD. GI leaning towards infectious cause. -Pt will need follow-up colonoscopy as outpatient (2) Hypokalemia: Plan: -K 3.2 on admission, likely 2/2 GI losses -Replete -Monitor BMP (3) Hyponatremia: Plan: -Improved -NSS hydration -Monitor BMP Improved (4) Dehydration: Plan: -Pt with weeks of GI losses and reduced oral intake -NSS + KCl repletion ongoing (5) Anemia: Plan: -Hgb 12.6 on admission -Mild normocytic anemia -Suspect due to bleeding hemorrhoid, lower suspicion for occult GI bleed -Trend CBC (6) COVID-19: Plan: Tested positive Asymptomatic Monitor clinically (7) Paralytic ileus: Plan: Possibly related to hypokalemia N.p.o. Bowel rest IV fluids Plan FENGI: Clear liquids Code status: Full DVT ppx: SCDs, deferring chemoprophylaxis given hematochezia Isolation: None Dispo: Medical/surgical Admission and Anticipated Discharge Date Admission Date: March 31, 2023 Subjective Patient is complaining of distended abdomen. His diarrhea is improving in frequency and consistency. However his belly is starting to hurt because of distention. He is also feeling nauseous today. Review of Systems Review of Systems: All systems reviewed & are unremarkable except as noted in Subjective Physical Exam Physical Exam: General: Awake, conversant Heart: S1, S2/regular rate and rhythm, no murmur rubs or gallops Lungs: Clear to auscultation bilaterally. Normal effort Abdomen: Distended abdomen. Mild tenderness to palpation in the lower abdomen with no rebound, rigidity or guarding. Positive bowel sounds. No hepatosplenomegaly Extremities: No clubbing/cyanosis. No edema Behavior: Appropriate, cooperative Results & Data Results & Data Vital Signs (Past 12 Hours) Vital Signs Temp Pulse Resp BP Pulse Ox O2 Del Method 04/01/23 07:37 36.6 C 73 16 121/81 99 Room Air PG Care Time/CCT Total # of Minutes Spent Total Time Spent with Patient: Total time spent is greater than 50% in coordination of care (as documented) at patient's floor/unit and/or counseling patient: Coding Level of Care Code 32687 SUB INP/OBS CARE 2/35MIN Diagnoses Colitis K52.9 Hypokalemia E87.6 Hyponatremia E87.1 Dehydration E86.0 Anemia D64.9 COVID-19 U07.1 Paralytic ileus K56.0
--- NOTE | 2023-04-01 13:53 | XRay Report ---
CHEST AND ABDOMEN 2 VIEWS HISTORY: Abdominal distention. Generalized abdominal pain. COMPARISON: Abdomen and pelvis CT 03/29/2023. FINDINGS: No pneumothorax. No pleural effusions. The lungs are clear. The heart is normal in size. No pneumoperitoneum. No pneumatosis. No renal calculi identified. Multiple distended gas-filled loops o f large and small bowel are again seen throughout the abdomen and appear to have slightly progressed. Distal colonic thickening is again noted. The small bowel measures up to 3.8 cm in diameter. The gas is seen extending into the sigmoid colon. This remains unchanged. IMPRESSION: 1. Redemonstration of the distal colitis. 2. Distended gas-filled loops of large and small bowel are again seen throughout the abdomen and have slightly progressed. This may represent an ileus versus partial distal large bowel obstruction from the thickened sigmoid colon/rectum. 3. No acute process within the chest. ACT 112: Negative or not required by law. Electronically signed by: Kali Patrick M.D. 04/01/2023 1:51 PM
[2023-04-02] MEDS: cefTRIAXone SODIUM 1,000 MG in DEXTROSE 5% AD-VAN 50 ML IV SCH (02:19)
[2023-04-02] MEDS: metroNIDAZOLE 500 MG/100 ML BAG IV SCH ×3 (03:06→18:46)
[2023-04-02] MEDS: NSS + 20MEQ KCL 20 MEQ/1,000 ML BAG IV SCH (03:06)
[2023-04-02 06:29] LABS: Hematocrit (blood only) 33.3 % (42.0-52.0); Hemoglobin 11.1 g/dl (14.0-18.0); Mean Corpuscular Hemoglobin 28.9 pg (25.0-34.0); Mean Corpuscular Hgb Conc 33.3 g/dL (32.0-36.0); Mean Corpuscular Volume 86.7 fL (80.0-100.0); Mean Platelet Volume 9.5 fL (9.4-12.4); Platelet Count 483 K/uL (130-400); RDW Coefficient of Variation 13.2 % (11.5-14.5); RDW Standard Deviation 41.6 fL (36.4-46.3); Red Blood Count 3.84 M/uL (4.70-6.10); White Blood Count 10.66 K/ul (4.8-10.8)
[2023-04-02 06:38] LABS: Appearance Urine Clear (Clear); Bacteria Urine Automated Negative (Negative); Bilirubin Urine Negative (Negative); Blood Urine Negative (Negative); Color Urine Dark Yellow; Glucose Urine UA Negative (Negative); Ketones Urine 2+ (Negative); Leukocyte Esterase Urine 1+ (Negative); Nitrite Urine Negative (Negative); Protein Urine Negative (Negative); RBC Urine Automated 0-4 /hpf (0-4); Specific Gravity Urine 1.021 (1.000-1.030); Urobilinogen Urine Negative (Negative)
[2023-04-02 06:50] LABS: BUN Creatinine Ratio 10.3 (10-20); Calcium 7.8 mg/dl (8.6-10.3); Creatinine Clr Calc Pharmacy 121.3 ml/min; Est GFR (African American) 136.5 ml/min; Est GFR (Non-African American) 117.8 ml/min; Potassium 4.1 mmol/L (3.5-5.1)
[2023-04-02] MEDS: D5NSS + 20MEQ KCL 20 MEQ/1,000 ML BAG IV SCH ×2 (11:57→20:53)
--- NOTE | 2023-04-02 12:14 | Hospitalist Progress Note ---
Date of Service April 02, 2023 Assessment & Plan (1) Colitis: Plan: -CTAP with findings suggestive of nonspecific colitis although UC in differential -Stool studies negative -Pt with leukocytosis on admission and elevated CRP from PCP labs. Ordered ESR, CRP, fecal calprotectin. Diarrhea improving Leukocytosis resolved However he started having distended abdomen on 04/01. Abdominal x-ray shows findings suggestive of paralytic ileus. Continue n.p.o. for bowel rest Increase IV fluid rate to 125 mL/h Treat hypokalemia Continue Zofran as needed, Tylenol as needed Continue ceftriaxone and Flagyl -GI leaning towards infectious cause. May need to reconsult if symptoms not improving to see if he needs steroids. -Pt will need follow-up colonoscopy as outpatient (2) Hypokalemia: Plan: -K 3.2 on admission, likely 2/2 GI losses -Replete -Monitor BMP (3) Hyponatremia: Plan: -Improved -NSS hydration -Monitor BMP Improved (4) Dehydration: Plan: -Pt with weeks of GI losses and reduced oral intake -NSS + KCl repletion ongoing (5) Anemia: Plan: -Hgb 12.6 on admission -Mild normocytic anemia -Suspect due to bleeding hemorrhoid, lower suspicion for occult GI bleed -Trend CBC (6) COVID-19: Plan: Tested positive Asymptomatic Monitor clinically (7) Paralytic ileus: Plan: Started on 04/01 Possibly related to recent hypokalemia N.p.o. Bowel rest IV fluids Plan FENGI: NPO except sips. D5 normal saline with potassium Code status: Full DVT ppx: SCDs, deferring chemoprophylaxis given hematochezia Isolation: None Dispo: Medical/surgical Admission and Anticipated Discharge Date Admission Date: March 31, 2023 Subjective Patient still has the distended abdomen. Had 2 episodes of explosive diarrhea. Not nauseous or vomiting. Slight abdominal pain from the distention. His diarrhea has most certainly improved in frequency. Review of Systems Review of Systems: All systems reviewed & are unremarkable except as noted in Subjective Physical Exam Physical Exam: General: Awake, conversant Heart: S1, S2/regular rate and rhythm, no murmur rubs or gallops Lungs: Clear to auscultation bilaterally. Normal effort Abdomen: Distended abdomen. Mild tenderness to palpation in the lower abdomen with no rebound, rigidity or guarding. Diminished bowel sounds. No hepatosplenomegaly Extremities: No clubbing/cyanosis. No edema Behavior: Appropriate, cooperative Results & Data Results & Data Vital Signs (Past 12 Hours) Vital Signs Temp Pulse Resp BP Pulse Ox O2 Del Method 04/02/23 07:28 36.6 C 77 16 125/78 98 Room Air PG Care Time/CCT Total # of Minutes Spent Total Time Spent with Patient: Total time spent is greater than 50% in coordination of care (as documented) at patient's floor/unit and/or counseling patient: Coding Level of Care Code 11125 SUB INP/OBS CARE 2/35MIN Diagnoses Colitis K52.9 Hypokalemia E87.6 Hyponatremia E87.1 Dehydration E86.0 Anemia D64.9 COVID-19 U07.1 Paralytic ileus K56.0
[2023-04-03] MEDS: cefTRIAXone SODIUM 1,000 MG in DEXTROSE 5% AD-VAN 50 ML IV SCH (01:47)
[2023-04-03] MEDS: metroNIDAZOLE 500 MG/100 ML BAG IV SCH ×3 (02:39→18:30)
[2023-04-03] MEDS: D5NSS + 20MEQ KCL 20 MEQ/1,000 ML BAG IV SCH ×3 (02:40→18:52)
[2023-04-03 06:52] LABS: Hematocrit (blood only) 31.6 % (42.0-52.0); Hemoglobin 10.6 g/dl (14.0-18.0); Mean Corpuscular Hemoglobin 29.1 pg (25.0-34.0); Mean Corpuscular Hgb Conc 33.5 g/dL (32.0-36.0); Mean Corpuscular Volume 86.8 fL (80.0-100.0); Mean Platelet Volume 9.3 fL (9.4-12.4); Platelet Count 533 K/uL (130-400); RDW Standard Deviation 41.5 fL (36.4-46.3); Red Blood Count 3.64 M/uL (4.70-6.10); White Blood Count 13.54 K/ul (4.8-10.8)
[2023-04-03 07:10] LABS: BUN Creatinine Ratio 10.8 (10-20); Calcium 7.6 mg/dl (8.6-10.3); Creatinine Clr Calc Pharmacy 126.9 ml/min; Est GFR (African American) 139.1 ml/min; Potassium 3.6 mmol/L (3.5-5.1)
--- NOTE | 2023-04-03 10:01 | Gastroenterology Progress Note ---
Date of Service April 03, 2023 Assessment & Plan (1) Colitis: Plan: I would recheck KUB to see if progression of ileus. Encouraged ambulation to help speed up gut. His symptoms have been going on for over three weeks now and are progressing. I think he needs to go ahead and have colonoscopy now as this is now subacute rather than acute. I don't think this is typical for the typical infectious enteritis. I don't want to use steroids until I am sure he has UC. I can't prep him though until ileus resolves. He will also need to be covid (-) before colonoscopy done. Admission and Anticipated Discharge Date Admission Date: March 31, 2023 Subjective Asked to come by and check on patient. Communication report by Daniel Villalobos from indicated plan for "elective colonoscopy". Patient has worsened since admission with developing abdominal distension and worsening bloody stools. KUB yesterday suggested ileus. NG placed without much improvement. He denies pain though. He is frustrated with lack of progress. Physical Exam Physical Exam: He looks well Results & Data Vital Signs (Past 12 Hours) Vital Signs Temp Pulse Resp BP Pulse Ox O2 Del Method 04/03/23 07:24 36.3 C L 79 16 123/84 96 Room Air
--- NOTE | 2023-04-03 12:14 | XRay Report ---
KUB HISTORY: Acute generalized abdominal pain with distention worsening abdominal distention COMPARISON: KUB 04/01/2023, CT 03/29/2023 FINDINGS: There is persistent gaseous distention involving loops of both large and small bowel. Large bowel loops measure up to approximately 9.2 cm. Small bowel loops measure up to approximately 4.2 cm . Status post placement of an enteric tube which is coiled upon itself with distal tip projected supe riorly within the distal esophagus. No renal calculi. No ureteral calculi. No pneumoperitoneum or pn eumatosis. No fracture. IMPRESSION: 1. Malpositioned enteric tube. Repositioning with follow-up imaging is needed. 2. Redemonstration of gaseous distention of both the large and small bowel suggestive of ileus versus distal obstruction. ACT 112: Negative or not required by law. The above report was generated using voice recognition software. It may contain grammatical, syntax o r spelling errors. Electronically signed by: Carlos A Hardy M.D. 04/03/2023 12:12 PM
--- NOTE | 2023-04-03 13:28 | Hospitalist Progress Note ---
Date of Service April 03, 2023 Assessment & Plan (1) Colitis: Plan: Acute/unstable - moderate to high risk - CTAP on admit with findings suggestive of nonspecific colitis although IBD in differential - Stool biofire negative - fecal calprotectin ordered/pending. - However he started having distended abdomen on 04/01. Abdominal x-ray shows findings suggestive of paralytic ileus v distal obstruction. - Maintain NPO, continue Zofran and APAP as needed - Continue empiric ceftriaxone and flagyl - GI consulted on admission but only wrote a communication noted - Reached out to Dr. Cardoza who saw pt this AM - recommend repeat KUB since pt having worsening distention despite NGT - KUB performed: NGT malpositioned (coiled in esophagus), I personally removed NGT and replaced with new one, measured ~60 cm, repeat KUB confirmed correct placement - Continue NG to LIS and ambulate as able - Ambulate as able, continue mIVF - Will require colonoscopy to exclude IBD diagnosis, preferably this admission however his +covid status is a barrier at present - Defer steroids until after colonoscopy completed (2) Leukocytosis: Plan: Acute/unstable - moderate risk - CBC reviewed, Leukocytosis noted on admit of 12, normalized on 04/02 - CBC reviewed today, WBC back up to 13.54 - Suspect that this may be related to acute process obstruction v ileus (3) Hypokalemia: Plan: Acute/stable - resolved - K 3.2 on admission, likely 2/2 GI losses - BMP reviewed this AM, potassium normal at 3.6 - Continue mIVF with potassium (4) Hyponatremia: Plan: Acute/stable - resolved - Na on BMP this AM WNL at 140 (5) Anemia: Plan: Chronic/stable - Hgb 12.6 on admission, trended to 10.6 - Mild normocytic anemia - Suspect could be related to bloody stool + dilutional effect (6) COVID-19: Plan: Acute/stable - asymptomatic - Incidentally tested positive - No indication for treatment at this time - Tested repeated 04/03 in error, was to be re-collected 04/04 in hopes it would be negative and he could proceed with colonoscopy prep Plan Repeat labs tomorrow AM. Continue NGT, ambulate as able. Continue antibiotics. Defer chemoppx. Appreciate Dr. Cardoza's (GI) assistance in this case. Plan has been d/w Dr. Zimmer. Admission and Anticipated Discharge Date Admission Date: March 31, 2023 Subjective Patient seen on daily rounds. He is resting in bed, currently upset regarding his care thus far, primarily about not being seen by GI since he was admitted. He notes worsening in his abdominal distention even since the NGT was placed last evening. There has been no output from the NG since insertion. Patient continues to pass liquid mixed with blood BMs. He denies n/v or abdominal pain. No fever/chills. Physical Exam Physical Exam: GENERAL: 43 yo well-developed, well-nourished but marginally underweight M. AAOx4. NAD. LUNGS: Clear to auscultation bilaterally w/o W/R/R. CARDIOVASCULAR: Regular rate and rhythm w/o m/g/r ABDOMEN: NGT in place, canister empty. Abd is moderately distended/taunt, hypoactive BS. Results & Data Results & Data Vital Signs (Past 12 Hours) Vital Signs Temp Pulse Resp BP Pulse Ox O2 Del Method 04/03/23 07:24 36.3 C L 79 16 123/84 96 Room Air Laboratory Results 04/03/23 06:21 04/03/23 06:21 Diagnostic Findings KUB X-Ray 04/03/23 11:35 KUB HISTORY: Acute generalized abdominal pain with distention worsening abdominal distention COMPARISON: KUB 04/01/2023, CT 03/29/2023 FINDINGS: There is persistent gaseous distention involving loops of both large and small bowel. Large bowel loops measure up to approximately 9.2 cm. Small bowel loops measure up to approximately 4.2 cm. Status post placement of an enteric tube which is coiled upon itself with distal tip projected superiorly within the distal esophagus. No renal calculi. No ureteral calculi. No pneumoperitoneum or pneumatosis. No fracture. IMPRESSION: 1. Malpositioned enteric tube. Repositioning with follow-up imaging is needed. 2. Redemonstration of gaseous distention of both the large and small bowel suggestive of ileus versus distal obstruction. ACT 112: Negative or not required by law. The above report was generated using voice recognition software. It may contain grammatical, syntax or spelling errors. Electronically signed by: Carlos A Hardy M.D. 04/03/2023 12:12 PM KUB X-Ray 04/03/23 14:03 KUB HISTORY: Repositioned enteric tube KUB of same day at 12:11 PM, CT 03/29/2023 COMPARISON: None. FINDINGS: There is persistent gaseous distention involving loops of both large and small bowel. Large bowel loops measure up to approximately 9.2 cm. Small bowel loops measure up to approximately 4.2 cm. Status repositioned enteric tube, now with distal tip injection over the mid gastric body. No renal calculi. No ureteral calculi. No pneumoperitoneum or pneumatosis. No fracture. IMPRESSION: 1. Repositioned enteric tube distal tip projects over the mid stomach. 2. Redemonstration of gaseous distention of both the large and small bowel suggestive of ileus versus distal obstruction. ACT 112: Negative or not required by law. The above report was generated using voice recognition software. It may contain grammatical, syntax or spelling errors. Electronically signed by: Carlos A Hardy M.D. 04/03/2023 2:34 PM PG Care Time/CCT Total # of Minutes Spent Total Time Spent with Patient: Total time spent is greater than 50% in coordination of care (as documented) at patient's floor/unit and/or counseling patient: Coding Level of Care Code 75694 SUB INP/OBS CARE 3/50MIN Diagnoses Colitis K52.9 Leukocytosis D72.829 Hypokalemia E87.6 Hyponatremia E87.1 Anemia D64.9 COVID-19 U07.1
--- NOTE | 2023-04-03 14:35 | XRay Report ---
KUB HISTORY: Repositioned enteric tube KUB of same day at 12:11 PM, CT 03/29/2023 COMPARISON: None. FINDINGS: There is persistent gaseous distention involving loops of both large and small bowel. Large bowel loops measure up to approximately 9.2 cm. Small bowel loops measure up to approximately 4.2 cm . Status repositioned enteric tube, now with distal tip injection over the mid gastric body. No renal calculi. No ureteral calculi. No pneumoperitoneum or pneumatosis. No fracture. IMPRESSION: 1. Repositioned enteric tube distal tip projects over the mid stomach. 2. Redemonstration of gaseous distention of both the large and small bowel suggestive of ileus versus distal obstruction. ACT 112: Negative or not required by law. The above report was generated using voice recognition software. It may contain grammatical, syntax o r spelling errors. Electronically signed by: Carlos A Hardy M.D. 04/03/2023 2:34 PM
[2023-04-03] MEDS ORDERED: ACETAMINOPHEN 1,000 MG/100 ML VIAL IV PRN (15:38)
[2023-04-04] MEDS: cefTRIAXone SODIUM 2,000 MG in DEXTROSE 5% 50 ML IV SCH (02:00)
[2023-04-04] MEDS: D5NSS + 20MEQ KCL 20 MEQ/1,000 ML BAG IV SCH ×4 (02:52→23:16)
[2023-04-04] MEDS: metroNIDAZOLE 500 MG/100 ML BAG IV SCH ×3 (03:57→18:14)
[2023-04-04 08:10] LABS: Hematocrit (blood only) 33.1 % (42.0-52.0); Hemoglobin 10.8 g/dl (14.0-18.0); Mean Corpuscular Hemoglobin 28.7 pg (25.0-34.0); Mean Corpuscular Hgb Conc 32.6 g/dL (32.0-36.0); Mean Platelet Volume 9.3 fL (9.4-12.4); Nucleated RBC # (auto) 0.02 K/uL (0-0.12); Nucleated RBC % (auto) 0.2 %; Platelet Count 643 K/uL (130-400); RDW Coefficient of Variation 13.8 % (11.5-14.5); RDW Standard Deviation 44.5 fL (36.4-46.3); Red Blood Count 3.76 M/uL (4.70-6.10); White Blood Count 12.99 K/ul (4.8-10.8)
[2023-04-04 08:34] LABS: BUN Creatinine Ratio 7.5 (10-20); Calcium 7.8 mg/dl (8.6-10.3); Creatinine Clr Calc Pharmacy 123.1 ml/min; Est GFR (African American) 137.4 ml/min; Est GFR (Non-African American) 118.5 ml/min; Potassium 3.5 mmol/L (3.5-5.1)
--- NOTE | 2023-04-04 11:18 | Gastroenterology Progress Note ---
Date of Service April 04, 2023 Assessment & Plan (1) Paralytic ileus: (2) Colitis: Plan Discussed with Dr. Eid who helped advise on plan. I also discussed care plan with Dr. Zimmer. Will plan to update KUB today. Once ileus has resolved, we can plan to prep the patient and set up a colonoscopy for further evaluation. Will await today's KUB results. Continue with ceftriaxone and flagyl. Answered all questions for the patient. Admission and Anticipated Discharge Date Admission Date: March 31, 2023 Supervising Physician Co-Signing Physician Notes Agree with Daniel Villalobos PAC as above Discussed plan with Daniel and with Dr. Zimmer KUB reviewed....still with ileus. Continue current therapy Colonoscopy when patient is able to undergo bowel prep Subjective Patient tells me that he has been having some stomach discomfort still. He has NG placed with dark fluid being removed. he tells me that he is passing small amounts of gas as well as small amounts of stool. Also can see blood. he tells me he has always had issues with moving his bowels his whole life where stools seemed to go in waves of loose stools/constipation. Physical Exam Constitutional: WD/WN, vitals as above Respiratory: normal respiratory effort, lungs clear to auscultation Cardiovascular: RRR Gastrointestinal (Abdomen): hypoactive bowel sounds, distended abdomen. mildly tender throughout. no guarding. Skin: no rashes, warm and dry Psychiatric: Orientation: alert and oriented x 3 Results & Data Results & Data Vital Signs (Past 12 Hours) Vital Signs Temp Pulse Resp BP Pulse Ox O2 Del Method 04/04/23 07:54 97.3 F L 85 18 119/79 97 Room Air PG Care Time/CCT Total # of Minutes Spent Total Time Spent with Patient: Total time spent is greater than 50% in coordination of care (as documented) at patient's floor/unit and/or counseling patient: Coding Level of Care Code 62312 SUB INP/OBS CARE 3/50MIN Diagnoses Paralytic ileus K56.0 Colitis K52.9 Time Spent (min) 54
--- NOTE | 2023-04-04 12:27 | XRay Report ---
KUB CLINICAL HISTORY: Ileus. FINDINGS: 2 AP supine abdominal radiographs are compared to study dated 04/03/2023 and correlated with abdominal CT dated 03/29/2023. An enteric tube is unchanged in position. There is persistent gaseous distention of the small bowel and colon. This has not significantly changed from yesterday. No eviden ce of intraperitoneal free air is seen on these supine images. There are no abnormal abdominal calcif ications. The visualized bony structures appear intact. IMPRESSION: Diffuse gaseous distention of the small bowel and colon is unchanged from yesterday and f avors ileus over distal obstruction. Correlate clinically. Electronically signed by: Douglas Duncan M.D. 04/04/2023 12:26 PM
--- NOTE | 2023-04-04 16:12 | Hospitalist Progress Note ---
Date of Service April 04, 2023 Assessment & Plan (1) Colitis: Plan: Acute/unstable - moderate to high risk - CTAP on admit with findings suggestive of nonspecific colitis although IBD in differential - Stool biofire negative - fecal calprotectin ordered/pending. -Repeat x-ray shows no progression resolution of his distended small bowel remains on antibiotics remains with NG tube and n.p.o. status - GI consulted continues to follow (2) Leukocytosis: Plan: Acute/unstable - moderate risk -Appears to persist with antibiotics (3) Hypokalemia: Plan: Acute/stable - resolved (4) Hyponatremia: Plan: Acute/stable - resolved - Na on BMP this AM WNL at 140 (5) Anemia: Plan: Chronic/stable - Hgb 12.6 on admission, trended to 10.6 - Mild normocytic anemia - Suspect could be related to bloody stool + dilutional effect (6) COVID-19: Plan: Acute/stable - asymptomatic - Incidentally tested positive - No indication for treatment at this time - Tested repeated 04/03 in error, was to be re-collected 04/04 in hopes it would be negative and he could proceed with colonoscopy prep Plan Admission and Anticipated Discharge Date Admission Date: March 31, 2023 Subjective pt is in mild distress, distended abdomen bloating but not real wretching or vomiting Physical Exam Physical Exam: I patient including bowel sounds distended abdomen tympanic to percussion rectal exam was unremarkable smear of liquid br/gr stool Results & Data Results & Data Vital Signs (Past 12 Hours) Vital Signs Temp Pulse Resp BP Pulse Ox O2 Del Method 04/04/23 15:18 97.7 F 67 16 125/84 96 Room Air 04/04/23 07:54 97.3 F L 85 18 119/79 97 Room Air Laboratory Results Reviewed CBC reviewed chemistry Personally spoke with gastroenterology on-call PG Care Time/CCT Total # of Minutes Spent Total Time Spent with Patient: Total time spent is greater than 50% in coordination of care (as documented) at patient's floor/unit and/or counseling patient: Coding Level of Care Code 24708 SUB INP/OBS CARE 2/35MIN Diagnoses Colitis K52.9 Leukocytosis D72.829 Hypokalemia E87.6 Hyponatremia E87.1 Anemia D64.9 COVID-19 U07.1
--- NOTE | 2023-04-04 21:57 | Surgery Consultation ---
Date of Consultation April 04, 2023 Assessment & Plan (1) Paralytic ileus: (2) Leukocytosis: (3) Colitis: (4) Nausea vomiting and diarrhea: Plan 43-year-old gentleman with progressive diarrhea and decreased bowel movements now appears to have a small large bowel ileus versus colitis. Underlying mass lesion cannot be ruled out based on imaging. He has some symptoms concerning for progressive narrowing/developing obstruction of the colon. He would benefit from inpatient colonoscopy to rule out a mass lesion in his colon. We will discuss this with GI. For now there is no surgical intervention required. Continue NG tube to low intermittent suction. We will continue to monitor. History of Present Illness Reason for Consultation: Persistent ileus of large and small bowel Requesting Physician: Jaspal Zimmer MD Attending Physician: Jaspal Zimmer MD History of Present Illness 43-year-old gentleman presents with a 5 to 6-week history of progressive diarrhea, becoming watery. He does state that there was some blood in his stool during this period. He progressed to only watery diarrhea as well as significant amounts of flatus. In the last week he has had less flatus, less output, and has developed diffuse abdominal pain punctuated by sharper pains in the lower abdomen. CT scan on admission to the hospital demonstrated what appeared to be a colonic ileus versus colitis. Subsequently he has developed a distention of both small and large bowel. A rectal exam was done today which was negative. He does endorse small amounts of flatus throughout his hospital stay. He has an NG tube in place. He denies fevers or chills. He has never had a colonoscopy. Allergies Allergy/AdvReac Type Severity Reaction Status Date / Time No Known Allergies Allergy Verified 03/29/23 15:39 Home Medications Medication Instructions Recorded Confirmed Type loperamide 2 mg tablet 2 mg PO DIRECTED PRN Diarrhea 03/29/23 03/29/23 History simethicone 125 mg capsule 125 mg PO DIRECTED PRN GAS 03/29/23 03/29/23 History DISCOMFORT Patient History Social History Smoking Status: Never smoker Hx Alcohol Use: No Hx Substance Use: No Preferred Language: Nepali Communication Ability: Effective Carpet Measurer Required: No Beliefs That Will Affect Care: None Current Living Situation: Alone Other Information That Helps Us Care for You: No Feels Safe at Home: Yes Safety Concerns: Feels Safe At This Time Assistive Devices: None Review of Systems Review of Systems: All systems reviewed & are unremarkable except as noted in HPI & below Physical Exam Constitutional: WD/WN, vitals as above Eyes: PERRL, conjunctivae normal, anicteric sclerae Neck: trachea midline, no thyromegaly Respiratory: normal respiratory effort; no respiratory distress and no labored breathing Cardiovascular: Rate/Rhythm: regular rate and regular rhythm Gastrointestinal (Abdomen): Inspection/Auscultation: + abdomen distended Percussion/Palpation: + abdomen tender (Mild TTP in LLQ/RLQ) and + abdomen firm; no guarding and abdomen not rigid Skin: no rashes, warm and dry Psychiatric: A+Ox3, euthymic affect Results & Data Vital Signs (Past 12 Hours) Vital Signs Temp Pulse Resp BP Pulse Ox O2 Del Method 04/04/23 19:49 36.8 C 68 18 126/79 98 Room Air 04/04/23 15:18 36.5 C 67 16 125/84 96 Room Air Laboratory Results 04/04/23 04/04/23 Range/Units 07:27 07:27 WBC 12.99 H (4.8-10.8) K/ul RBC 3.76 L (4.70-6.10) M/uL Hgb 10.8 L (14.0-18.0) g/dl Hct 33.1 L (42.0-52.0) % MCV 88.0 (80.0-100.0) fL MCH 28.7 (25.0-34.0) pg MCHC 32.6 (32.0-36.0) g/dL RDW Std Deviation 44.5 (36.4-46.3) fL RDW Coeff of Teresita 13.8 (11.5-14.5) % Plt Count 643 H (130-400) K/uL MPV 9.3 L (9.4-12.4) fL Absolute Nucleated RBC 0.02 (0-0.12) K/uL Nucleated RBC % (auto) 0.2 % Sodium 143 (136-145) mmol/L Potassium 3.5 (3.5-5.1) mmol/L Chloride 109 H (98-107) mmol/L Carbon Dioxide 28 (21-32) mmol/L Anion Gap 6 (3-11) BUN 5 L (6-23) mg/dl Creatinine 0.67 (0.6-1.4) mg/dl Est Cr Clr Drug Dosing 123.1 ml/min Est GFR ( Amer) 137.4 ml/min Est GFR (Non-Af Amer) 118.5 ml/min BUN/Creatinine Ratio 7.5 L (10-20) Glucose 143 H (70-99(Fasting)) mg/dl Calcium 7.8 L (8.6-10.3) mg/dl Diagnostic Findings CT OF THE ABDOMEN AND PELVIS WITH CONTRAST CLINICAL HISTORY: diarrhea, blood in stools, weight loss COMPARISON STUDY: None. TECHNIQUE: Following IV administration of 88 mL of Optiray, axial images of the abdomen and pelvis were obtained from the lung bases to the proximal femurs. Images were reviewed in the axial, sagittal, and coronal planes. IV contrast was administered without complication. Automated exposure control was utilized for the study. A dose lowering technique was utilized adhering to the principles of ALARA. Oral contrast was administered. CT DOSE: 455.26 mGy.cm FINDINGS: Lung bases are unremarkable. No pneumatosis, free air or portal venous gas is present. The liver, spleen, adrenal glands, kidneys and pancreas are unremarkable. There is no biliary or pancreatic ductal dilatation. There are gallstones within the gallbladder. The gallbladder is not distended. Note is made of moderate wall thickening of the splenic flexure of the colon, the descending colon and the sigmoid colon and proximal rectum with pericolonic stranding and trace pericolonic fluid. There is a large amount stool within the cecum and ascending colon. The ascending colon and transverse colon are mildly dilated. No well-defined transition point is identified. There is no abscess. Note is made of a mildly enlarged left pelvic sidewall lymph node on image 599 of 777 that measures 1.2 x 1 cm. There are additional prominent perirectal/pericolonic lymph nodes. Major vasculature is patent. IMPRESSION: 1. Moderate wall thickening of the splenic flexure of the colon, the descending colon, sigmoid colon and proximal rectum with pericolonic stranding and fluid. The finding represents a nonspecific colitis. Differential considerations include an infectious colitis. Ulcerative colitis is also within the differential. Associated moderate dilatation of the ascending colon and transverse colon without convincing evidence for a bowel obstruction. Large amount of stool within the cecum and ascending colon. 2. Prominent pericolonic and perirectal lymph nodes, including a left pelvic sidewall lymph node. These may be reactive. However, an occult underlying neoplasm within the colon would be difficult to exclude. GI consultation for consideration for nonemergent colonoscopy is recommended. 3. Cholelithiasis.
[2023-04-05] MEDS: cefTRIAXone SODIUM 2,000 MG in DEXTROSE 5% 50 ML IV SCH (02:45)
[2023-04-05] MEDS: metroNIDAZOLE 500 MG/100 ML BAG IV SCH ×3 (03:30→18:34)
[2023-04-05] MEDS: D5NSS + 20MEQ KCL 20 MEQ/1,000 ML BAG IV SCH (07:42)
[2023-04-05 09:27] LABS: Hematocrit (blood only) 32.7 % (42.0-52.0); Mean Corpuscular Hemoglobin 29.6 pg (25.0-34.0); Mean Corpuscular Hgb Conc 33.6 g/dL (32.0-36.0); Mean Corpuscular Volume 88.1 fL (80.0-100.0); Mean Platelet Volume 9.2 fL (9.4-12.4); Platelet Count 677 K/uL (130-400); RDW Coefficient of Variation 14.2 % (11.5-14.5); RDW Standard Deviation 45.5 fL (36.4-46.3); Red Blood Count 3.71 M/uL (4.70-6.10); White Blood Count 13.85 K/ul (4.8-10.8)
[2023-04-05 09:49] LABS: Calcium 7.8 mg/dl (8.6-10.3); Magnesium 2.2 mg/dl (1.7-2.4); Potassium 3.3 mmol/L (3.5-5.1)
[2023-04-05 09:55] LABS: BUN Creatinine Ratio 6.2 (10-20); Creatinine Clr Calc Pharmacy 126.9 ml/min; Est GFR (African American) 139.1 ml/min; Phosphorus 2.3 mg/dl (2.5-4.9)
--- NOTE | 2023-04-05 10:09 | History & Physical Bridge Note ---
Date of Service April 05, 2023 History & Physical Bridge Note I have examined the patient, reviewed the History & Physical and in the interval since the performance of the History & Physical I have noted the following changes of clinical significance: no changes noted. Patient tells me he is passing more gas today than yesterday. Still just having "sediment" passed when he tries to move his bowels. He had some increased pain this morning but he tells me this was relieved with Tylenol. When I went to see him he is up and walking out of bed. decreased bowel sounds, abdomen distended. mild diffuse tenderness to palpation. discussed with Dr. Eid and will plan to set up an unprepped flex sig for today. I discussed risks/benefits with the patient and he was agreeable to proceed. Supervising Physician Co-Signing Physician Notes Agree with Daniel Villalobos, PAC as above KUB yesterday still showing dilation of small and large intestine Patient unable to take anything PO at present Discussed case with Dr. Zimmer. Will attempt unprepped Flex sig to colonoscopy with insertion to most proximal point of colon which is able to be visualized as patient was unable to take a bowel prep. Gen: A+Ox3, Cooperative Abd: Soft, Tender left Upper Quadrant Distended, minimal BS Will proceed with Flex Sig/Colonoscopy today
[2023-04-05] MEDS ORDERED: TPN/PPN CONSULT PHARMACY SCH (10:19)
[2023-04-05] MEDS ORDERED: MoRPHine SULFATE 2 MG/ML CARP IV PRN (10:37)
--- NOTE | 2023-04-05 10:38 | Surgery Progress Note ---
Date of Service April 05, 2023 Assessment & Plan (1) Paralytic ileus: (2) Leukocytosis: (3) Colitis: (4) Nausea vomiting and diarrhea: Plan 43-year-old gentleman with progressive diarrhea and decreased bowel movements now appears to have a small large bowel ileus versus colitis. Underlying mass lesion cannot be ruled out based on imaging. He has some symptoms concerning for progressive narrowing/developing obstruction of the colon. He would benefit from inpatient colonoscopy to rule out a mass lesion in his colon. Plan: Discussed possible colonoscopy +/- decompression with rectal tube with GI this morning as patient having more pain and still distended with no significant improvement with NGT for 2 days. They plan to do unprepped flex sigmoidoscopy. No surgical intervention required at this time IV morphine added for severe pain Continue IV fluids Continue NG tube to low intermittent suction. Continue medical management will follow along Discussed with Dr. jaramillo who agrees with above. Admission and Anticipated Discharge Date Admission Date: March 31, 2023 Subjective States he had episode of sharp abdominal pain about 9/10 this morning, IV tylenol starting to help passing more gas today than yesterday but still distended, no change no n,v urinating without difficulty Physical Exam Constitutional: WD/WN, vitals as above cooperative and comfortable; no acute distress and not ill appearing Respiratory: normal respiratory effort; no respiratory distress Gastrointestinal (Abdomen): Inspection/Auscultation: + abdomen distended (moderate distention) Percussion/Palpation: + abdomen tender (LLQ), abdomen soft and + tympanic to percussion; no guarding and abdomen not rigid Skin: no rashes, warm and dry Psychiatric: Orientation: alert and oriented x 3 Results & Data Vital Signs (Past 12 Hours) Vital Signs Temp Pulse Resp BP Pulse Ox O2 Del Method 04/05/23 09:34 37 C 67 18 131/76 96 Room Air 04/05/23 07:50 36.3 C L 60 18 131/84 96 Room Air Laboratory Results 04/05/23 04/05/23 04/05/23 Range/Units 12:03 08:41 08:41 WBC 13.85 H (4.8-10.8) K/ul RBC 3.71 L (4.70-6.10) M/uL Hgb 11.0 L (14.0-18.0) g/dl Hct 32.7 L (42.0-52.0) % MCV 88.1 (80.0-100.0) fL MCH 29.6 (25.0-34.0) pg MCHC 33.6 (32.0-36.0) g/dL RDW Std Deviation 45.5 (36.4-46.3) fL RDW Coeff of Teresita 14.2 (11.5-14.5) % Plt Count 677 H (130-400) K/uL MPV 9.2 L (9.4-12.4) fL Sodium 142 (136-145) mmol/L Potassium 3.3 L (3.5-5.1) mmol/L Chloride 108 H (98-107) mmol/L Carbon Dioxide 28 (21-32) mmol/L Anion Gap 6 (3-11) BUN 4 L (6-23) mg/dl Creatinine 0.65 (0.6-1.4) mg/dl Est Cr Clr Drug Dosing 126.9 ml/min Est GFR ( Amer) 139.1 ml/min Est GFR (Non-Af Amer) 120.0 ml/min BUN/Creatinine Ratio 6.2 L (10-20) Glucose 141 H (70-99(Fasting)) mg/dl POC Glucose 149 H (70-99) mg/dl Calcium 7.8 L (8.6-10.3) mg/dl Phosphorus 2.3 L (2.5-4.9) mg/dl Magnesium 2.2 (1.7-2.4) mg/dl Triglycerides 90 (0-150) mg/dl
--- NOTE | 2023-04-05 10:39 | Anesthesiology Consultation ---
Date of Service April 05, 2023 Assessment & Plan (1) Encounter for pre-operative examination: Chart Review Chart Review: Acceptable Risk for Surgery, Patient NOT seen in Pre Admission Testing and medical charge entry specialist initiated Consults Requested none History Surgery Operation Date: 04/05/23 16:30 Proposed Procedures p Flexible Sigmoidoscopy Dr Stanton Regalado Case, DO Height/Weight Height: 5 ft 8 in Weight: 60.6 kg Allergies Allergy/AdvReac Type Severity Reaction Status Date / Time No Known Allergies Allergy Verified 03/29/23 15:39 Medications Home Medications Medication Instructions Recorded Confirmed Last Taken loperamide 2 mg tablet 2 mg PO DIRECTED PRN Diarrhea 03/29/23 03/29/23 Unknown simethicone 125 mg capsule 125 mg PO DIRECTED PRN GAS 03/29/23 03/29/23 03/29/23 DISCOMFORT Active Medications Generic Name Dose Route Start Last Admin Trade Name Freq PRN Reason Stop Dose Admin Metronidazole 500 mg in 100 mls @ 100 mls/hr 03/30/23 03:00 04/05/23 04:37 Flagyl IV 04/09/23 02:59 Infused Q8H IRINEO Infusion Protocol Potassium Chloride/Dextrose/Sod Cl 20 meq in 1,000 mls @ 125 mls/hr 04/02/23 10:45 04/05/23 07:42 D5nss + 20meq Kcl IV 04/05/23 15:59 125 mls/hr .Q8H IRINEO Administration Protocol Acetaminophen 1,000 mg in 100 mls @ 400 mls/hr 04/03/23 15:38 04/05/23 10:17 Ofirmev IV 04/06/23 15:37 Infused Q8H PRN Infusion Pain, fever, headache Ceftriaxone Sodium 2,000 mg/ 70 mls @ 140 mls/hr 04/04/23 02:00 04/05/23 04 :37 Dextrose IV 04/09/23 01:59 Infused Q24H IRINEO Infusion Simethicone 120 mg 03/29/23 23:35 04/02/23 08:08 Simethicone 80 Mg Chew PO 04/28/23 23:34 120 mg DAILY PRN Administration GAS DISCOMFORT Past Medical History Medical History (Updated 04/05/23 @ 10:41 by Tate Enamorado MD) Encounter for pre-operative examination Social History Smoking Status: Never smoker Hx Alcohol Use: No Hx Substance Use: No substance use type: does not use Physical Exam Vital Signs Last Vital Signs Temp 37 C 04/05/23 09:34 Pulse 67 04/05/23 09:34 Resp 18 04/05/23 09:34 BP 131/76 04/05/23 09:34 Pulse Ox 96 04/05/23 09:34 O2 Del Method Room Air 04/05/23 09:34 Testing Laboratory Results 04/05/23 08:41 04/05/23 08:41 Urine Color Dark Yellow 04/02/23 Unknown Urine Appearance Clear (Clear) 04/02/23 Unknown Urine pH 5.0 (4.5-7.5) 04/02/23 Unknown Ur Specific Adkins 1.021 (1.000-1.030) 04/02/23 Unknown Urine Protein Negative (Negative) 04/02/23 Unknown Urine Glucose (UA) Negative (Negative) 04/02/23 Unknown Urine Ketones 2+ (Negative) H 04/02/23 Unknown Urine Nitrite Negative (Negative) 04/02/23 Unknown Ur Leukocyte Esterase 1+ (Negative) H 04/02/23 Unknown Urine WBC (Auto) 1-5 /hpf (0-5) 04/02/23 Unknown Urine RBC (Auto) 0-4 /hpf (0-4) 04/02/23 Unknown U Hyaline Cast (Auto) 1-5 /lpf (0-5) 04/02/23 Unknown U Epithel Cells (Auto) 5-10 /lpf (0-5) H 04/02/23 Unknown Urine Bacteria (Auto) Negative (Negative) 04/02/23 Unknown Chest X-Ray Date: 04/01/23 CHEST AND ABDOMEN 2 VIEWS HISTORY: Abdominal distention. Generalized abdominal pain. COMPARISON: Abdomen and pelvis CT 03/29/2023. FINDINGS: No pneumothorax. No pleural effusions. The lungs are clear. The heart is normal in size. No pneumoperitoneum. No pneumatosis. No renal calculi identified. Multiple distended gas-filled loops of large and small bowel are again seen throughout the abdomen and appear to have slightly progressed. Distal colonic thickening is again noted. The small bowel measures up to 3.8 cm in diameter. The gas is seen extending into the sigmoid colon. This remains unchanged. IMPRESSION: 1. Redemonstration of the distal colitis. 2. Distended gas-filled loops of large and small bowel are again seen throughout the abdomen and have slightly progressed. This may represent an ileus versus partial distal large bowel obstruction from the thickened sigmoid colon/rectum. 3. No acute process within the chest. Other Testing 04/04/23 KUB CLINICAL HISTORY: Ileus. FINDINGS: 2 AP supine abdominal radiographs are compared to study dated 04/03/2023 and correlated with abdominal CT dated 03/29/2023. An enteric tube is unchanged in position. There is persistent gaseous distention of the small bowel and colon. This has not significantly changed from yesterday. No evidence of intraperitoneal free air is seen on these supine images. There are no abnormal abdominal calcifications. The visualized bony structures appear intact. IMPRESSION: Diffuse gaseous distention of the small bowel and colon is unchanged from yesterday and favors ileus over distal obstruction. Correlate clinically.
[2023-04-05] MEDS ORDERED: POTASSIUM PHOSPHATE 15 MMOL in SODIUM CHLORIDE 0.9% 250 ML IV ONE (10:45)
[2023-04-05] MEDS ORDERED: PROPOFOL IV EMULSION 10 MG/ML 20 ML VIAL IV ONE ×2 (12:52→12:53)
[2023-04-05] MEDS ORDERED: LIDOCAINE 2% 2 ML VIAL/AMP(20MG/ML) INFIL ONE ×2 (12:52→12:53)
[2023-04-05] MEDS ORDERED: ATROPINE SULFATE 0.1 MG/ML 10ML SYR IV PRN ×2 (13:32→14:27)
[2023-04-05] MEDS ORDERED: ePHEDrine sulfate 50 MG/ML AMP IV PRN ×2 (13:32→14:27)
--- NOTE | 2023-04-05 13:52 | Pharmacy Report ---
Pharmacy PN Initial Consult - Date of Service April 05, 2023 - Scope Pharmacy has been consulted to manage parenteral nutrition orders and order appropriate labs. As part of the Nutrition Support Team guidelines, pharmacy will work in conjunction with dietary when determining the patients caloric needs. - Subjective The patient is a 43 year old M admitted on 03/31/23 13:57 for DIARRHEA and decrease BMs, now with small large bowel ileus vs colitis, starting PPN, until PICC line is placed for TPN. Plan for update [facility] GI this morning. Plan for colonoscopy once ileus has resolved. Continues on ceftriaxone and Flagyl. No surgical intervention at this time. - Objective Height: 5 ft 8 in Weight: 60.6 kg Diet: NPO Vascular Access:: Peripheral, until PICC placement Intake & Output (Last 24Hrs): Intake & Output 04/03/23 04/04/23 04/05/23 04/06/23 06:59 06:59 06:59 06:59 Intake Total 2959.584 / 2959.584 3359.583 / 3359.583 2400.000 / 2400.000 1891.383 / 1891.383 Output Total 400 / 400 825 / 825 2275 / 2275 50 / 50 Balance 2559.584 / 2559.584 2534.583 / 2534.583 125.000 / 353.709 4448.383 / 1841.383 Weight 60.6 kg 60.6 kg Laboratory Data (Last 24 Hrs):: 04/05/23 08:41 Sodium 142 Potassium 3.3 L Chloride 108 H Carbon Dioxide 28 BUN 4 L Creatinine 0.65 Glucose 141 H Calcium 7.8 L Phosphorus 2.3 L Magnesium 2.2 Triglycerides 90 Nutrition Assessment:: Please refer to the Notes section of the EMR for the most recent extension associate note. - Assessment Patient at high risk for refeeding syndrome. Will start slow and hold lipids on day 1, and incorporate on day 2 if day 1 tolerated. K 3.3 and Phos 2.3 this AM - replete with KPos 15mmol this AM prior to starting PN. - Plan For day 1 of PN administration, the following will be ordered: Macronutrients Amino acids 77 grams/day Dextrose 90 grams/day Lipids 0 grams/day for day 1, will add on day 2 Micronutrients Combined electrolytes 20 mL - contains 35 mEq Na, 20 meq K, 4.5 mEq Ca, 5 mEq Mg, 35 mEq Cl, 29.5 mEq acetate per 20 mL Potassium phosphate 15 mMol Multivitamins 10 mL Trace Elements 10 mL Additional additives: Thiamine 100mg, Folic acid 1mg Total volume 1837 mL to be infused over 24 hrs will provide 612 kcal/day Final osmolarity 749 mOsm/L (maximum for PPN is 900 mOsm/L) Labs to be ordered per PN order protocol Pharmacy will follow and adjust parenteral nutrition orders on a daily basis. Thank you.
[2023-04-05] MEDS ORDERED: PROMETHAZINE HCL 12.5 MG in SODIUM CHLORIDE 0.9% 50 ML IV PRN (14:27)
[2023-04-05] MEDS ORDERED: fentaNYL citrate PF 100 MCG/2 ML VIAL ONE (14:27)
[2023-04-05] MEDS ORDERED: ONDANSETRON INJ 2 MG/ML 2 ML VIAL IV PRN (14:27)
[2023-04-05] MEDS: fentaNYL citrate PF 100 MCG/2 ML VIAL IV PRN ×4 (14:30→15:00)
--- NOTE | 2023-04-05 14:33 | Anesthesiology Progress Note ---
Date of Service April 05, 2023 Anesthesia Post Procedure Vital Signs Vital Signs: Temp Pulse Resp BP Pulse Ox O2 Del Method 04/05/23 13:15 97.5 F L 55 L 16 119/81 97 Room Air 04/05/23 09:34 98.6 F 67 18 131/76 96 Room Air 04/05/23 07:50 97.3 F L 60 18 131/84 96 Room Air 04/04/23 19:49 98.2 F 68 18 126/79 98 Room Air 04/04/23 15:18 97.7 F 67 16 125/84 96 Room Air Pain Intensity Generalized: Pain Intensity: 0 Bilateral Lower Abdomen: Pain Intensity: 2 Transfer of Care Handoff Completed per policy Notes Mental Status: alert / awake / arousable and participated in evaluation Patient Amnestic to Procedure: Yes Nausea / Vomiting: adequately controlled Pain: adequately controlled Airway Patency, RR, SpO2: stable & adequate BP & HR: stable & adequate Hydration State: stable & adequate Anesthetic Complications: no major complications apparent and Pt Satisfied with anesthetic care
--- NOTE | 2023-04-05 14:35 | GI REPORT ---
Patient Name: Carlos A Gilman Procedure Date: 04/05/2023 1:44 PM Date of : 1980 Admit Type: Inpatient Age: 43 Gender: Male Attending MD: Elier Eid DO, Procedure: Colonoscopy Providers: Elier Eid DO Referring MD: Jaspal Zimmer Indications: Generalized abdominal pain, Abnormal CT of the GI tract Medicines: Monitored Anesthesia Care Complications: No immediate complications. Estimated Blood Loss: Estimated blood loss: none. Procedure: Pre-Anesthesia Assessment: - Prior to the procedure, a History and Physical was performed, and patient medications and allergies were reviewed. The patient's tolerance of previous anesthesia was also reviewed. The risks and benefits of the procedure and the sedation options and risks were discussed with the patient. All questions were answered, and informed consent was obtained. Prior Anticoagulants: The patient has taken no anticoagulant or antiplatelet agents. ASA Grade Assessment: III - A patient with severe systemic disease. After reviewing the risks and benefits, the patient was deemed in satisfactory condition to undergo the procedure. After I obtained informed consent, the scope was passed under direct vision. Throughout the procedure, the patient's blood pressure, pulse, and oxygen saturations were monitored continuously. The Colonoscope was introduced through the anus with the intention of advancing to the ileum. The scope was advanced to the hepatic flexure before the procedure was aborted. Medications were given. The colonoscopy was performed with difficulty due to poor bowel prep. The patient tolerated the procedure well. The quality of the bowel preparation was poor. Findings: The perianal and digital rectal examinations were normal. Segmental severe inflammation characterized by congestion (edema), friability, loss of vascularity, mucus and confluent ulcerations was found in the rectum, in the sigmoid colon, in the descending colon and at the splenic flexure. Biopsies were taken with a cold forceps for histology. Copious quantities of semi-solid stool was found at the hepatic flexure and in the ascending colon, precluding visualization and resulting in removal of colonoscope. Impression: - Preparation of the colon was poor. - Segmental severe inflammation was found in the rectum, in the sigmoid colon, in the descending colon and at the splenic flexure secondary to colitis. Biopsied. - Stool at the hepatic flexure and in the ascending colon. Recommendation: - [facility]. - Clear liquid diet. - Use methylprednisolone 40 mg IV BID. - Await pathology results. - Discussed case in detail with Dr. Zimmer. Elier Eid, DO 04/05/2023 2:34:28 PM This report has been signed electronically. Note Initiated On: 04/05/2023 1:44 PM Number of Addenda: 0 I attest to the content of the Intraoperative Record and orders documented therein, exceptions below {[id number]}
[2023-04-05] MEDS: HYDROmorphone INJ 2 MG/ML SYR/VIAL IV PRN ×2 (15:05→15:10)
[2023-04-05] MEDS ORDERED: KETOROLAC 30 MG/ML VIAL ONE (15:23)
[2023-04-05] MEDS ORDERED: KETOROLAC 30 MG/ML VIAL IV ONE (15:24)
[2023-04-05] MEDS ORDERED: PERIPHERAL TPN IV SCH (16:00)
[2023-04-05] MEDS ORDERED: DEXTROSE 10% 1,000 ML IV PRN (16:00)
[2023-04-05] MEDS ORDERED: [UNRECOGNIZED DRUG - OTHER] IV SCH (16:00)
--- NOTE | 2023-04-05 17:59 | Hospitalist Progress Note ---
Date of Service April 05, 2023 Assessment & Plan (1) Colitis: Plan: Acute/unstable - moderate to high risk - CTAP on admit with findings suggestive of nonspecific colitis although IBD in differential - Stool biofire negative - fecal calprotectin ordered/pending. -Repeat x-ray shows no progression resolution of his distended small bowel remains on antibiotics remains with NG tube ceftriaxone Flagyl - GI consulted colonoscopy shows inflammation, started on steroids (2) Leukocytosis: Plan: Acute/ - moderate risk -Appears to persist with antibiotics (3) Hypokalemia: Plan: Acute/stable - resolved (4) Hyponatremia: Plan: Acute/stable - resolved - Na on BMP this AM WNL at 140 (5) Anemia: Plan: Chronic/stable - Hgb 12.6 on admission, trended to 10.6 - Mild normocytic anemia - Suspect could be related to bloody stool + dilutional effect (6) COVID-19: Plan: Acute/stable - asymptomatic - Incidentally tested positive - No indication for treatment at this time - Plan Admission and Anticipated Discharge Date Admission Date: March 31, 2023 Subjective pt is still somewhat sedate after procedure' still some abdominal pain still some distension Physical Exam Physical Exam: I patient including bowel sounds distended abdomen tympanic to percussion ngt with scant drainage rectal exam was unremarkable smear of liquid br/gr stool Results & Data Results & Data Vital Signs (Past 12 Hours) Vital Signs Temp Pulse Pulse Resp BP BP Pulse Ox 04/05/23 16:10 97.7 F 65 18 143/81 H 93 04/05/23 15:35 97.2 F L 61 14 132/86 94 04/05/23 15:25 61 18 139/85 95 04/05/23 15:15 60 15 137/90 96 04/05/23 15:05 58 L 16 134/86 96 04/05/23 14:55 57 L 16 129/75 97 04/05/23 14:35 58 L 13 137/79 95 04/05/23 14:45 52 L 12 134/74 95 04/05/23 14:25 97.3 F L 58 L 16 137/79 97 04/05/23 14:18 97.3 F L 61 14 121/96 97 04/05/23 13:15 97.5 F L 55 L 16 119/81 97 04/05/23 09:34 98.6 F 67 18 131/76 96 04/05/23 07:50 97.3 F L 60 18 131/84 96 O2 Del Method 04/05/23 16:10 Room Air 04/05/23 15:35 Room Air 04/05/23 15:25 Room Air 04/05/23 15:15 Room Air 04/05/23 15:05 Room Air 04/05/23 14:55 Room Air 04/05/23 14:35 Room Air 04/05/23 14:45 Room Air 04/05/23 14:25 Room Air 04/05/23 14:18 Room Air 04/05/23 13:15 Room Air 04/05/23 09:34 Room Air 04/05/23 07:50 Room Air PG Care Time/CCT Total # of Minutes Spent Total Time Spent with Patient: Total time spent is greater than 50% in coordination of care (as documented) at patient's floor/unit and/or counseling patient: Coding Level of Care Code 55789 SUB INP/OBS CARE MIN Diagnoses Colitis K52.9 Leukocytosis D72.829 Hypokalemia E87.6 Hyponatremia E87.1 Anemia D64.9 COVID-19 U07.1
[2023-04-05] MEDS: methylPREDNISolone 40 MG in SYRINGE 0 ML IV SCH (21:09)
[2023-04-06] MEDS: cefTRIAXone SODIUM 2,000 MG in DEXTROSE 5% 50 ML IV SCH (02:12)
[2023-04-06] MEDS: metroNIDAZOLE 500 MG/100 ML BAG IV SCH ×3 (02:13→18:12)
[2023-04-06] MEDS: methylPREDNISolone 40 MG in SYRINGE 0 ML IV SCH ×2 (08:37→21:26)
[2023-04-06 08:38] LABS: Hematocrit (blood only) 37.2 % (42.0-52.0); Hemoglobin 12.4 g/dl (14.0-18.0); Mean Corpuscular Hemoglobin 28.6 pg (25.0-34.0); Mean Corpuscular Hgb Conc 33.3 g/dL (32.0-36.0); Mean Corpuscular Volume 85.9 fL (80.0-100.0); Mean Platelet Volume 9.1 fL (9.4-12.4); Platelet Count 776 K/uL (130-400); RDW Coefficient of Variation 13.8 % (11.5-14.5); RDW Standard Deviation 43.1 fL (36.4-46.3); Red Blood Count 4.33 M/uL (4.70-6.10)
[2023-04-06 09:11] LABS: Anion Gap 6 (3-11); Blood Urea Nitrogen 9 mg/dl (6-23); Calcium 8.2 mg/dl (8.6-10.3); Carbon Dioxide 30 mmol/L (21-32); Chloride 100 mmol/L (98-107); Creatinine Clr Calc Pharmacy 155.1 ml/min; Est GFR (African American) > 150.0 ml/min; Est GFR (Non-African American) 130.5 ml/min; Glucose 135 mg/dl (70-99(Fasting)); Magnesium 2.1 mg/dl (1.7-2.4); Phosphorus 2.6 mg/dl (2.5-4.9); Potassium 3.7 mmol/L (3.5-5.1); Sodium 136 mmol/L (136-145)
--- NOTE | 2023-04-06 10:04 | Gastroenterology Progress Note ---
Date of Service April 06, 2023 Assessment & Plan (1) Colitis: Plan: Discussed with Dr. Eid. Likely patient has UC. - continue methylprednisolone 40mg IV BID. Upon discharge, he will need to be transitioned to prednisone 40mg once daily with a 5 mg a week taper. - await pathology results. - scheduled follow up appointment in GI office for 04/17/23 at 3 PM. Admission and Anticipated Discharge Date Admission Date: March 31, 2023 Supervising Physician Co-Signing Physician Notes Agree with Daniel Villalobos, PAC as above Patient feeling much better, however KUB shows no improvement Abd: Soft, less distended, NT, +BS Continue current therapy and supportive care Awaiting pathology results Further recommendations to follow Subjective Patient is s/p unpreppped colonoscopy yesterday. He tells me that after the procedure he had several loose bowel movements. Still has NGT with suction. He tells me that today he is overall feeling much improved. He has no further abdominal pain this morning. no nausea, vomiting. Colonoscopy 04/05/23 poor prep, segmental severe inflammation in rectum, sigmoid, descending colon, and splenic flexure. Path pending. Physical Exam Constitutional: WD/WN, vitals as above Respiratory: normal respiratory effort, lungs clear to auscultation Cardiovascular: RRR, no murmur, no edema Gastrointestinal (Abdomen): hypoactive bowel sounds, abdomen is less distended today. soft. nontender. Skin: no rashes, warm and dry Psychiatric: Orientation: alert and oriented x 3 Affect: euthymic affect Results & Data Results & Data Vital Signs (Past 12 Hours) Vital Signs Temp Pulse Resp BP Pulse Ox O2 Del Method 04/06/23 07:03 97.5 F L 65 16 130/81 95 Room Air PG Care Time/CCT Total # of Minutes Spent Total Time Spent with Patient: Total time spent is greater than 50% in coordination of care (as documented) at patient's floor/unit and/or counseling patient: Coding Level of Care Code 71860 SUB INP/OBS CARE 1/25MIN Diagnoses Colitis K52.9 Time Spent (min) 30
--- NOTE | 2023-04-06 10:46 | XRay Report ---
KUB CLINICAL HISTORY: Ileus. Bowel distention. FINDINGS: 2 AP supine abdominal radiographs are compared to study dated 04/04/2023 and correlated with abdominal CT dated 03/29/2023. An enteric tube is unchanged in position. There is persistent gaseous distention of the small bowel and colon. This has not significantly changed from previous. No evidenc e of intraperitoneal free air is seen on these supine images. There are no abnormal abdominal calcifi cations. The visualized bony structures appear intact. IMPRESSION: Diffuse gaseous distention of the small bowel and colon is unchanged from 04/04/2023 and f avors ileus over distal obstruction. Correlate clinically. Electronically signed by: Douglas Duncan M.D. 04/06/2023 10:45 AM
[2023-04-06] MEDS ORDERED: POLYETHYLENE (MIRALAX) 17 GM PACK PO ONE (15:45)
[2023-04-06] MEDS ORDERED: CLINOLIPID 20% IV FAT EMULSION 250 ML IV SCH (16:00)
[2023-04-06] MEDS ORDERED: [UNRECOGNIZED DRUG - OTHER] IV SCH (16:00)
[2023-04-06] MEDS ORDERED: PERIPHERAL TPN IV SCH (16:00)
[2023-04-06] MEDS ORDERED: FUROSEMIDE INJ 20 MG/2 ML VIAL IV ONE (18:01)
--- NOTE | 2023-04-06 18:01 | Hospitalist Progress Note ---
Date of Service April 06, 2023 Assessment & Plan (1) Colitis: Plan: Acute/unstable - moderate to high risk - CTAP on admit with findings suggestive of nonspecific colitis although IBD in differential - Stool biofire negative - fecal calprotectin ordered/pending. -Repeat x-ray shows no progression resolution of his distended small bowel remains on antibiotics remains with NG tube ceftriaxone Flagyl - GI consulted colonoscopy shows inflammation, suspect ulcerative colitis, started on iv steroids Patient was continuous persistent small bowel distention likely related to ascending colon stool. After discussion with surgery we will try dose of MiraLAX down the NG tube and see if we can promote this ascending: Stool to move which would hopefully then decompress the small bowel and allow us to begin oral feeding. Because the patient's been without significant nutrition for over a week he was started on peripheral nutrition at this point time but has developed persistent lower extremity edema likely from third spaced fluids and will be given a dose of Lasix therapy (2) Hypokalemia: Plan: Acute/stable - resolved (3) Hyponatremia: Plan: Acute/stable - resolved - Na on BMP this AM WNL at 140 (4) Anemia: Plan: Chronic/stable - Hgb 12.6 on admission, trended to 10.6 - Mild normocytic anemia - Suspect could be related to bloody stool + dilutional effect (5) COVID-19: Plan: Acute/stable - asymptomatic - Incidentally tested positive - No indication for treatment at this time - Plan Admission and Anticipated Discharge Date Admission Date: March 31, 2023 Subjective Patient is s/p unpreppped colonoscopy 04/05/23 pt did have mirlax wiht a clamped NGT then resumed afer one hour with suction. He is developed some third spaced edema likely due to poor nutrition Colonoscopy 04/05/23 poor prep, segmental severe inflammation in rectum, sigmoid, descending colon, and splenic flexure. Path pending. Physical Exam Physical Exam: Continue with mild distention bowel sounds and tympany. Lower extremity edema to 1-2+. Results & Data Results & Data Vital Signs (Past 12 Hours) Vital Signs Temp Pulse Resp BP BP Pulse Ox O2 Del Method 04/06/23 14:58 97.9 F 61 16 129/79 97 Room Air 04/06/23 07:03 97.5 F L 65 16 130/81 95 Room Air Laboratory Results Reviewed CBC reviewed chemistry PG Care Time/CCT Total # of Minutes Spent Total Time Spent with Patient: Total time spent is greater than 50% in coordination of care (as documented) at patient's floor/unit and/or counseling patient: Coding Level of Care Code 27107 SUB INP/OBS CARE 2/35MIN Diagnoses Colitis K52.9 Hypokalemia E87.6 Hyponatremia E87.1 Anemia D64.9 COVID-19 U07.1
--- NOTE | 2023-04-06 19:03 | Surgery Progress Note ---
Date of Service April 06, 2023 Assessment & Plan (1) Paralytic ileus: (2) Leukocytosis: (3) Colitis: (4) Nausea vomiting and diarrhea: Plan 43-year-old gentleman with progressive diarrhea and decreased bowel movements now appears to have a small large bowel ileus versus colitis. Colonoscopy demonstrated severe colitis in the left colon, sigmoid colon, rectum. He has been started on prednisone, high-dose. Plan: No surgical intervention required at this time IV morphine added for severe pain Continue IV fluids Continue prednisone as directed Consider removal of NG tube Continue medical management will follow along Admission and Anticipated Discharge Date Admission Date: March 31, 2023 Subjective Feeling better today. Less bloated. Still minimal gas. NG tube still in place. Physical Exam Gastrointestinal (Abdomen): Inspection/Auscultation: + abdomen distended Percussion/Palpation: + abdomen tender (Mild TTP in LLQ/RLQ); no guarding and abdomen not rigid Results & Data Vital Signs (Past 12 Hours) Vital Signs Temp Pulse Resp BP BP Pulse Ox O2 Del Method 04/06/23 14:58 36.6 C 61 16 129/79 97 Room Air 04/06/23 07:03 36.4 C L 65 16 130/81 95 Room Air
[2023-04-06] MEDS ORDERED: STOP CLINOLIPID SCH (22:00)
[2023-04-07] MEDS: cefTRIAXone SODIUM 2,000 MG in DEXTROSE 5% 50 ML IV SCH (02:20)
[2023-04-07] MEDS: metroNIDAZOLE 500 MG/100 ML BAG IV SCH ×3 (03:09→18:17)
--- NOTE | 2023-04-07 08:30 | Surgery Progress Note ---
Date of Service April 07, 2023 Assessment & Plan (1) Paralytic ileus: (2) Leukocytosis: (3) Colitis: (4) Nausea vomiting and diarrhea: Plan 43-year-old gentleman with progressive diarrhea and decreased bowel movements now appears to have a small large bowel ileus versus colitis. Colonoscopy demonstrated severe colitis in the left colon, sigmoid colon, rectum. He has been started on prednisone, high-dose. Plan: No surgical intervention required at this time IV morphine added for severe pain Continue IV fluids Continue prednisone as directed miralax as needed Consider removal of NG tube Continue medical management will follow along Admission and Anticipated Discharge Date Admission Date: March 31, 2023 Subjective Feeling better today. Less bloated. moderate flatus last evening. no BM. NG tube still in place. Physical Exam Gastrointestinal (Abdomen): Inspection/Auscultation: + abdomen distended Percussion/Palpation: + abdomen tender (Mild TTP in LLQ/RLQ); no guarding and abdomen not rigid Results & Data Vital Signs (Past 12 Hours) Vital Signs Temp Pulse Resp BP Pulse Ox O2 Del Method 04/07/23 07:49 36.4 C L 58 L 18 124/74 96 Room Air 04/06/23 23:56 36.4 C L 48 L 16 130/78 95 Room Air
[2023-04-07 09:18] LABS: Albumin Level 2.7 gm/dl (3.4-5.0); Anion Gap 6 (3-11); BUN Creatinine Ratio 28.8 (10-20); Blood Urea Nitrogen 15 mg/dl (6-23); Calcium 8.2 mg/dl (8.6-10.3); Carbon Dioxide 29 mmol/L (21-32); Chloride 101 mmol/L (98-107); Creatinine Clr Calc Pharmacy 158.1 ml/min; Est GFR (African American) > 150.0 ml/min; Est GFR (Non-African American) 131.5 ml/min; Glucose 137 mg/dl (70-99(Fasting)); Magnesium 2.4 mg/dl (1.7-2.4); Phosphorus 2.5 mg/dl (2.5-4.9); Potassium 4.1 mmol/L (3.5-5.1); Sodium 136 mmol/L (136-145)
[2023-04-07] MEDS: methylPREDNISolone 40 MG in SYRINGE 0 ML IV SCH ×2 (09:41→21:28)
[2023-04-07] MEDS ORDERED: POLYETHYLENE (MIRALAX) 17 GM PACK PO ONE ×2 (11:03→18:00)
[2023-04-07] MEDS ORDERED: CLINOLIPID 20% IV FAT EMULSION 250 ML IV SCH ×2 (12:15→16:00)
[2023-04-07] MEDS ORDERED: PERIPHERAL TPN IV SCH (16:00)
[2023-04-07] MEDS ORDERED: [UNRECOGNIZED DRUG - OTHER] IV SCH (16:00)
--- NOTE | 2023-04-07 17:57 | Hospitalist Progress Note ---
Date of Service April 07, 2023 Assessment & Plan (1) Colitis: Plan: Acute/improving since initiation of steroids - CTAP on admit with findings suggestive of nonspecific colitis although IBD in differential - Stool biofire negative - fecal calprotectin ordered/pending. -Repeat x-ray shows no progression resolution of his distended small bowel remains on antibiotics remains with NG tube Remains on ceftriaxone Flagyl complete 10 day course last dose will be 04/09/2023 - GI consulted colonoscopy shows inflammation, suspect ulcerative colitis, started on iv steroids Patient was continuous persistent small bowel distention likely related to ascending colon stool. After discussion with surgery we will try dose of MiraLAX down the NG tube and see if we can promote this ascending: Stool to move which would hopefully then decompress the small bowel and allow us to begin oral feeding. Patient tolerated dose of MiraLAX and tube clamping removing NG tube 162 additional dose of MiraLAX and ending starting on clear liquid diet Because the patient's been without significant nutrition for over a week he was started on peripheral nutrition at this point time but has developed persistent lower extremity edema likely from third spaced fluids and redosed Lasix once again on 04-28 If patient tolerates oral intake likely can discontinue PPN on 04/08/2023 (2) Hypokalemia: Plan: Acute/stable - resolved (3) Hyponatremia: Plan: Acute/stable - resolved - Na on BMP this AM WNL at 140 (4) Anemia: Plan: Chronic/stable - Hgb 12.6 on admission, trended to 10.6 - Mild normocytic anemia - Suspect could be related to bloody stool + dilutional effect (5) COVID-19: Plan: Acute/stable - asymptomatic - Incidentally tested positive - No indication for treatment at this time Patient is off COVID isolation per infection control - Plan Admission and Anticipated Discharge Date Admission Date: March 31, 2023 Subjective Patient feels somewhat improved he had 1 small smear of a bowel movement yesterday he has had no nausea or vomiting and cannot tolerate clamping of his NG tube. He had 2 doses of MiraLAX administered today he will be on a clear liquid diet. He does have peripheral body wall edema likely from his poor nu tritional state will be given additional dose of Lasix today Physical Exam Physical Exam: Patient is awake alert and appropriate his abdomen is with some high-pitched bowel sounds but nontender slightly distended and tympanitic but no distress Results & Data Results & Data Vital Signs (Past 12 Hours) Vital Signs Temp Pulse Resp BP Pulse Ox O2 Del Method 04/07/23 14:33 97.3 F L 51 L 14 134/82 97 Room Air 04/07/23 07:49 97.5 F L 58 L 18 124/74 96 Room Air Laboratory Results Reviewed chemistry Albumin is low at 2.7 PG Care Time/CCT Total # of Minutes Spent Total Time Spent with Patient: Total time spent is greater than 50% in coordination of care (as documented) at patient's floor/unit and/or counseling patient: Coding Level of Care Code 34625 SUB INP/OBS CARE 2/35MIN Diagnoses Colitis K52.9 Hypokalemia E87.6 Hyponatremia E87.1 Anemia D64.9 COVID-19 U07.1
[2023-04-07] MEDS ORDERED: FUROSEMIDE INJ 20 MG/2 ML VIAL IV ONE (18:00)
[2023-04-07] MEDS: STOP CLINOLIPID SCH (21:28)
[2023-04-08] MEDS: cefTRIAXone SODIUM 2,000 MG in DEXTROSE 5% 50 ML IV SCH (02:27)
[2023-04-08] MEDS: metroNIDAZOLE 500 MG/100 ML BAG IV SCH ×3 (02:56→18:31)
--- NOTE | 2023-04-08 06:27 | Surgery Progress Note ---
Date of Service April 08, 2023 Assessment & Plan (1) Colitis: Plan: Patient has been admitted on the hospitalist service. Patient did undergo colonoscopy that demonstrated severe colitis in the left colon as well as the sigmoid colon and rectum. He is receiving steroids in the form of prednisone Continue analgesics as needed Consideration can be given to slowly advancing his diet if his bowels continue to work and abdominal exam remains benign Currently no need for surgical intervention As above. Still distended. No pain. He did tolerate clears but states that it still "did not sit right". I would keep him on clears for today and cautioned him about progressing slowly. Discussed with Dr. Cloud from medicine we will repeat his KUB tomorrow. I will continue to follow along Admission and Anticipated Discharge Date Admission Date: March 31, 2023 Subjective Patient is resting comfortably in bed. Patient notes that he had multiple bowel movements over the past shift with some solid stool and some liquid. He notes that since his bowels begin to move his abdomen is much less distended and is currently not painful. He denies any nausea or vomiting since NG tube was removed yesterday. Discussed with the warehouse shift supervisor nurse and she notes the patient's abdominal exam is markedly improved since his bowels started to move. She did not note any acute surgical issues overnight. Physical Exam Gastrointestinal (Abdomen): Bowel sounds are present. Abdomen is soft with minimal distention and is nonrigid. There is no pain with palpation. There is no rebound tenderness or guarding. Results & Data Vital Signs (Past 12 Hours) Vital Signs Temp Pulse Resp BP Pulse Ox O2 Del Method 04/07/23 23:59 36.6 C 53 L 18 119/70 97 Room Air PG Care Time/CCT Total # of Minutes Spent Total Time Spent with Patient: Total time spent is greater than 50% in coordination of care (as documented) at patient's floor/unit and/or counseling patient: Coding Level of Care Code 11936 SUB INP/OBS CARE 2/35MIN Diagnoses Colitis K52.9
[2023-04-08 07:20] LABS: Anion Gap 6 (3-11); BUN Creatinine Ratio 30.2 (10-20); Blood Urea Nitrogen 16 mg/dl (6-23); Calcium 8.2 mg/dl (8.6-10.3); Carbon Dioxide 29 mmol/L (21-32); Chloride 101 mmol/L (98-107); Creatinine Clr Calc Pharmacy 163.3 ml/min; Est GFR (African American) > 150.0 ml/min; Est GFR (Non-African American) 130.5 ml/min; Glucose 135 mg/dl (70-99(Fasting)); Magnesium 2.4 mg/dl (1.7-2.4); Sodium 136 mmol/L (136-145)
[2023-04-08] MEDS: methylPREDNISolone 40 MG in SYRINGE 0 ML IV SCH ×2 (09:15→21:39)
--- NOTE | 2023-04-08 09:15 | Hospitalist Progress Note ---
Date of Service April 08, 2023 Assessment & Plan (1) Paralytic ileus: Plan: Hospital etiology is ulcerative colitis Patient was seen by gastroenterology and had a sigmoid decompression. No evidence of erosion or other acute issues Continue with methylprednisolone twice daily per GI orders Pain is improved. Patient with bowel movements after MiraLAX. Surgery is also on board and actively seeing the patient daily Check repeat KUB in the morning Continue with clear liquid diet as tolerated I did not advance until KUB is reviewed by surgery tomorrow morning (2) Colitis: Plan: Possible ulcerative colitis Gastroenterology is following. Patient should follow with outpatient as well Continue ceftriaxone and metronidazole for now Continue clear liquid diet Late as tolerated (3) Nausea vomiting and diarrhea: Plan: Resolved Patient is now requiring MiraLAX for bowel movement (4) COVID-19: Plan: Incidental finding on admission. No pulmonary symptoms Patient has completed isolation protocol. No further contact precautions are required (5) Hyponatremia: Plan: Resolved (6) Hypokalemia: Plan: Resolved (7) Leg edema: Plan: No mention of lower extremity edema and prior provider notes for surgery, GI, internal medicine Patient is complaining of some pain in the bilateral legs Is noted the patient is 17 L ahead since admission Did receive 20 mg of furosemide IV yesterday We will order 40 mg of furosemide today and check a bilateral lower extremity duplex to rule out DVT. Patient instructed to increase activity and walk in room and hallways as tolerated. Plan DVT prophylaxis: No current chemical prophylaxis as it was suspected the patient may need surgery. We will add heparin 5000 units subcutaneously 3 times daily. Patient also encouraged to ambulate regularly. Check lower extremity duplex to rule out DVT due to new onset lower extremity edema Please refer to Dr. Pepe's addendum for further recommendations. Admission and Anticipated Discharge Date Admission Date: March 31, 2023 Subjective Attending: Dr. Pepe This is a 43-year-old male that presented with 3 weeks of diarrhea and was admitted 03/29/2023. He was found to have colitis. Patient underwent decompressive sigmoidoscopy on 04/05/2023. Patient was doing well but then developed what appeared to be a small large bowel ileus versus colitis. Surgery was consulted and no intervention was indicated. Patient appears to have some slow improvement. He was most recently seen by surgery this morning who noted that consideration could be given to slowly advancing diet if bowels continue to work abdominal exam remains benign. Surgery did not advance a diet after seeing him today. Differential diagnosis includes ulcerative colitis. Patient continues on ceftriaxone 2 g daily and metronidazole 500 mg IV every 8 hours. He is also on methylprednisolone 40 mg IV twice daily. Patient states that he is feeling better but is still bloated. Good output this morning with mioralax. No nausea or vomiting. Diuscussed with surgery. For now will continue with clear liquid diet and repeat KUB in the morning. Review of Systems Review of Systems: A total of 10 systems was reviewed and is negative other than as listed in the HPI Physical Exam Physical Exam: GENERAL : No acute distress EYES: No icterus, gaze conjugate NOSE: No evidence of epistaxis MOUTH: No lesions or candidiasis NECK: Supple LUNGS: CTA B/L, no wheezes, rales or rhonchi HEART: Regular, rate controlled ABDOMEN: Abdomen is slightly distended. No specific pain to palpation. Very minimal bowel sounds. EXTREMITIES: Bilateral +3 LE edema, pedal pulses intact and equal bilaterally NEURO: A&OX3 Results & Data Results & Data Vital Signs (Past 12 Hours) Vital Signs Temp Pulse Pulse Resp BP BP Pulse Ox 04/08/23 08:00 36.4 C L 58 L 16 125/78 97 04/07/23 23:59 36.6 C 53 L 18 119/70 97 O2 Del Method 04/08/23 08:00 Room Air 04/07/23 23:59 Room Air Critical Care Results & Data Vital Signs (Past 12 Hours) Vital Signs Temp Pulse Pulse Resp BP BP Pulse Ox 04/08/23 08:00 36.4 C L 58 L 16 125/78 97 04/07/23 23:59 36.6 C 53 L 18 119/70 97 O2 Del Method 04/08/23 08:00 Room Air 04/07/23 23:59 Room Air Lab & Micro Results (Past 24 Hours) No Data to Display Na 136 mmol/L (136-145) 04/08/23 K 4.0 mmol/L (3.5-5.1) 04/08/23 Cl 101 mmol/L (98-107) 04/08/23 CO2 29 mmol/L (21-32) 04/08/23 Anion Gap 6 (3-11) 04/08/23 BUN 16 mg/dl (6-23) 04/08/23 Creatinine 0.53 mg/dl (0.6-1.4) L 04/08/23 Estimated GFR ( Amer) > 150.0 ml/min 04/08/23 Estimated GFR (Non-Af Amer) 130.5 ml/min 04/08/23 BUN/Creatinine Ratio 30.2 (10-20) H 04/08/23 Glu 135 mg/dl (70-99(Fasting)) H 04/08/23 Ca 8.2 mg/dl (8.6-10.3) L 04/08/23 Phosphorus Level 3.0 mg/dl (2.5-4.9) 04/08/23 Mg 2.4 mg/dl (1.7-2.4) 04/08/23 06:17 Calcium Level 8.2 mg/dl (8.6-10.3) L 04/08/23 06:17 I & O Totals 24 Hours 04/07/23 04/08/23 04/09/23 06:59 06:59 06:59 Intake Total 2457 / 2457 2567.87 / 2567.87 Output Total 976 / 976 400 / 400 Balance 1481 / 1481 2167.87 / 2167.87 Cumulative 03/29/23 13:20 thru 04/08/23 04:02 Intake Total 75011.287 Output Total 7576 Balance 15056.287 RT Ventilator Mngmt (Last Documented) Ventilator Ordered Settings Respiratory Rate 16 04/08/23 08:00 Ventilator - PT Measurements Respiratory Rate 16 PG Care Time/CCT Total # of Minutes Spent Total Time Spent with Patient: Total time spent is greater than 50% in coordination of care (as documented) at patient's floor/unit and/or counseling patient:30 Coding Level of Care Code 69760 SUB INP/OBS CARE 3/50MIN Diagnoses Paralytic ileus K56.0 Colitis K52.9 Nausea vomiting and diarrhea R11.2; R19.7 COVID-19 U07.1 Hyponatremia E87.1 Hypokalemia E87.6 Leg edema R60.0 Time Spent (min) 30
[2023-04-08] MEDS ORDERED: FUROSEMIDE 40 MG/4 ML VIAL IV ONE (11:59)
--- NOTE | 2023-04-08 12:56 | Ultrasound Report ---
BILATERAL LOWER EXTREMITY VENOUS DOPPLER HISTORY: Acute pain and swelling of the lower legs New onset B/L LE edema w/ leg pain COMPARISON STUDY: None. FINDINGS: There is normal compressibility, flow, and augmentation within the bilateral lower extremit y deep venous systems. Subcutaneous edema. IMPRESSION: No DVT within the right or left lower extremity. ACT 112: Negative or not required by law. Electronically signed by: Carlos A Hardy M.D. 04/08/2023 12:55 PM
[2023-04-08] MEDS: POLYETHYLENE (MIRALAX) 17 GM PACK PO SCH (15:41)
[2023-04-08] MEDS ORDERED: CLINOLIPID 20% IV FAT EMULSION 250 ML IV SCH (16:00)
[2023-04-08] MEDS ORDERED: PERIPHERAL TPN IV SCH (16:00)
[2023-04-08] MEDS ORDERED: [UNRECOGNIZED DRUG - OTHER] IV SCH (16:00)
--- NOTE | 2023-04-08 21:36 | Communication Note ---
Date of Service: April 08, 2023 I was called by RN at approximately 9:22 PM on 04/08/2023. She noted that the patient feels as though his abdomen is somewhat more distended than what was not ed earlier in the day. I responded to the nurses techs within 2 minutes and visited with the patient at the bedside within 5. At the time my visit with the patient he specifically denied any abdominal pain. He also denied any nausea or vomiting. He says he has been tolerating clear liquids but does not have much in the way of an appetite so his diet was not advanced past clear liquids. He notes that he continues to have small bowel movements. He denies any fevers, shakes, or chills. Patient's most recent vitals show blood pressure of 113/81 and a pulse of 79. His respirations are 16 and nonlabored. He has not had any fevers over the past 24 hours. When I visited with the patient at the bedside he was resting comfortably in bed and he appeared nontoxic. On exam the patient's abdomen has minimal to mild distention with some tympany to percussion. On exam the patient's abdomen may have only slight more distention with noted on physical exam this morning. The abdomen is soft and it is nonrigid. There is minimal pain with palpation in any area of his abdomen. There is no rebound tenderness or guarding. A KUB this morning demonstrated gaseous distention of the small bowel and colon favoring a diagnosis of ileus. Due to the above notations we will check a KUB at bedside this evening. KUB was performed shortly after my initial visit with the patient. This shows gaseous distention of the patient's colon and small bowel which was similar to what was noted on previous imaging. I would favor this as an ileus. I did not appreciate any free air on this study. As the patient does note some slightly more distention and notes that his bowel movements have decreased in size I would back him down to n.p.o. for this evening and we will reevaluate tomorrow with a KUB in the morning and assess him clinically. The above was discussed with the patient and the nurse.
[2023-04-08] MEDS: STOP CLINOLIPID SCH (21:39)
--- NOTE | 2023-04-09 06:17 | Surgery Progress Note ---
Date of Service April 09, 2023 Assessment & Plan (1) Colitis: Plan: Patient has been admitted on the hospitalist service. Colonoscopy on 04/05/2023 demonstrated severe colitis in the left colon as well as the sigmoid colon and rectum. He continues to receive steroids in the form of methylprednisone Patient has had a CT scan as well as numerous KUBs that demonstrate gaseous distention of the small bowel and large bowel consistent with ileus. The patient did previously have an NG tube in place which was removed on 04-28. This was also noted on KUB performed last night on 04/08/2023. Due to patient's reported clinical symptoms as well as findings on KUB his diet was backed down to n.p.o. status. Continue n.p.o. status until patient has further improvement of his clinical symptoms. We are planning on checking a KUB this morning (this is pending). At the present time as the patient is passing a small amount of flatus, does not have any nausea or vomiting, and has no abdominal pain I do not feel an NG tube required at this time She is receiving TPN for nutrition/hydration Check a.m. labs when available Continue analgesics as needed Ambulation has been encouraged At the present time the patient does not appear to have an acute abdomen that would necessitate surgical intervention As above. Actually currently feeling a fair amount better. Abdomen is softer than yesterday and he had another liquid bowel movement this morning. I agree his abdomen is softer. He has active bowel sounds and no nausea. I will cancel the KUB because he just had one a couple hours ago. We will repeat tomorrow. We will also hold MiraLAX as I do not want to give a stimulant in the face of an ileus. I will let him try some clears again but gave him signs and symptoms to watch for. Admission and Anticipated Discharge Date Admission Date: March 31, 2023 Subjective Patient is resting comfortably in bed at this time. Since my visit with him last night he denies any nausea or vomiting and he has been passing some flatus has not had a bowel movement overnight. He denies abdominal pain but notes my abdomen "just does not feel right/feels a little off." He denies any fevers, shakes, or chills. No shortness of breath Physical Exam Gastrointestinal (Abdomen): Slight distention of the abdomen is noted. There are some tympany to percussion. Bowel sounds are hypoactive. There is no pain with palpation and there is no rebound tenderness or guarding. Results & Data Vital Signs (Past 12 Hours) Vital Signs Temp Pulse Resp BP Pulse Ox O2 Del Method 04/09/23 00:18 36.6 C 52 L 18 121/73 96 Room Air PG Care Time/CCT Total # of Minutes Spent Total Time Spent with Patient: Total time spent is greater than 50% in coordination of care (as documented) at patient's floor/unit and/or counseling patient: Coding Level of Care Code 37439 SUB INP/OBS CARE 11/30MIN Diagnoses Colitis K52.9
[2023-04-09 07:46] LABS: Anion Gap 3 (3-11); BUN Creatinine Ratio 32.7 (10-20); Blood Urea Nitrogen 16 mg/dl (6-23); Calcium 7.8 mg/dl (8.6-10.3); Carbon Dioxide 29 mmol/L (21-32); Chloride 104 mmol/L (98-107); Creatinine Clr Calc Pharmacy 168.9 ml/min; Est GFR (African American) > 150.0 ml/min; Est GFR (Non-African American) 134.8 ml/min; Glucose 148 mg/dl (70-99(Fasting)); Magnesium 2.4 mg/dl (1.7-2.4); Phosphorus 2.8 mg/dl (2.5-4.9); Potassium 4.2 mmol/L (3.5-5.1); Sodium 136 mmol/L (136-145)
[2023-04-09] MEDS: methylPREDNISolone 40 MG in SYRINGE 0 ML IV SCH ×2 (07:57→20:30)
--- NOTE | 2023-04-09 08:41 | XRay Report ---
KUB HISTORY: Acute generalized abdominal pain with distention abd. distention COMPARISON: 04/06/2023 FINDINGS: Persistent gaseous distention of both the large and small bowel. Dilated small bowel loops measure up tor 4.5 cm, previously 4.2 cm. Large bowel loops measure up to approximately 7.5 cm, previ ously 8.3 cm. No renal calculi. No ureteral calculi. No pneumoperitoneum or pneumatosis. No fracture . IMPRESSION: Stable exam with persistent gaseous distention of the large and small bowel. Findings are again sugge stive of ileus with distal obstructive process considered less likely. ACT 112: Negative or not required by law. The above report was generated using voice recognition software. It may contain grammatical, syntax o r spelling errors. Electronically signed by: Carlos A Hardy M.D. 04/09/2023 8:40 AM
[2023-04-09] MEDS: POLYETHYLENE (MIRALAX) 17 GM PACK PO SCH (09:53)
[2023-04-09] MEDS: SENNA 8.6 MG TAB PO SCH (10:50)
--- NOTE | 2023-04-09 15:55 | Hospitalist Progress Note ---
Date of Service April 09, 2023 Assessment & Plan (1) Paralytic ileus: Plan: etiology is ulcerative colitis Patient was seen by gastroenterology and had a sigmoid decompression. No evidence of erosion or other acute issues Continue with methylprednisolone twice daily per GI orders Pain is improved. Patient with bowel movements after MiraLAX. Surgery is also on board and actively seeing the patient daily Repeat KUB canceled for this morning Continue with clear liquid diet as he is tolerating it so far (2) Colitis: Plan: Likely ulcerative colitis Gastroenterology is following. Patient should follow with outpatient as well Completed course of ceftriaxone and Flagyl Continue clear liquid diet Advance as tolerated (3) Nausea vomiting and diarrhea: Plan: Resolved Patient is now requiring MiraLAX for bowel movement (4) COVID-19: Plan: Incidental finding on admission. No pulmonary symptoms Patient has completed isolation protocol. No further contact precautions are required (5) Hyponatremia: Plan: Resolved (6) Hypokalemia: Plan: Resolved (7) Leg edema: Plan: Patient received few doses of IV Lasix with improvement in leg swelling Most likely secondary to fluid overload Encourage to ambulate and mobilize We will hold off on further doses of Lasix today Ultrasound of the lower extremities negative for DVT. Plan DVT prophylaxis: Continue heparin 5000 units subcutaneously 3 times daily. Pat ient also encouraged to ambulate regularly. Admission and Anticipated Discharge Date Admission Date: March 31, 2023 Subjective Patient stated that his belly is not as swollen today. He tolerated a clear liquid diet. He says that he is trying to take it easy and not to eat too much. Review of Systems Review of Systems: All systems reviewed & are unremarkable except as noted in Subjective Physical Exam Physical Exam: General: Awake, conversant Heart: S1, S2/regular rate and rhythm, no murmur rubs or gallops Lungs: Clear to auscultation bilaterally. Normal effort Abdomen: Soft, nontender. Sluggish bowel sounds. Very mildly distended. Extremities: No clubbing/cyanosis. 2+ bilateral pitting edema Behavior: Appropriate, cooperative Results & Data Results & Data Vital Signs (Past 12 Hours) Vital Signs Temp Pulse Resp BP Pulse Ox O2 Del Method 04/09/23 07:45 36.6 C 59 L 16 116/77 97 Room Air PG Care Time/CCT Total # of Minutes Spent Total Time Spent with Patient: Total time spent is greater than 50% in coordination of care (as documented) at patient's floor/unit and/or counseling patient: Coding Level of Care Code 37559 SUB INP/OBS CARE 235MIN Diagnoses Paralytic ileus K56.0 Colitis K52.9 Nausea vomiting and diarrhea R11.2; R19.7 COVID-19 U07.1 Hyponatremia E87.1 Hypokalemia E87.6 Leg edema R60.0
[2023-04-09] MEDS ORDERED: PERIPHERAL TPN IV SCH (16:00)
[2023-04-09] MEDS ORDERED: [UNRECOGNIZED DRUG - OTHER] IV SCH (16:00)
[2023-04-09] MEDS ORDERED: CLINOLIPID 20% IV FAT EMULSION 250 ML IV SCH (16:00)
[2023-04-09] MEDS: STOP CLINOLIPID SCH (22:15)
--- NOTE | 2023-04-10 08:32 | XRay Report ---
KUB HISTORY: Acute generalized abdominal pain ileus/sbo COMPARISON: 04/08/2023 FINDINGS: Persistent gaseous distention of both the large and small bowel. Dilated small bowel loops measure up tor 4.5 cm, unchanged.r Large bowel loops measure up to approximately 8.3 cm which is also unchanged. No renal calculi. No ureteral calculi. No pneumoperitoneum or pneumatosis. No fracture. IMPRESSION: Stable exam with persistent gaseous distention of the large and small bowel. Findings are again suggestive of ileus with distal obstructive process considered less likely. ACT 112: Negative or not required by law. The above report was generated using voice recognition software. It may contain grammatical, syntax o r spelling errors. Electronically signed by: Carlos A Hardy M.D. 04/10/2023 8:30 AM
[2023-04-10 09:24] LABS: BUN Creatinine Ratio 28.3 (10-20); Calcium 8.3 mg/dl (8.6-10.3); Creatinine Clr Calc Pharmacy 137.5 ml/min; Est GFR (African American) 143.7 ml/min; Magnesium 2.4 mg/dl (1.7-2.4); Phosphorus 2.9 mg/dl (2.5-4.9); Potassium 4.4 mmol/L (3.5-5.1)
[2023-04-10] MEDS: SENNA 8.6 MG TAB PO SCH (10:04)
[2023-04-10] MEDS: methylPREDNISolone 40 MG in SYRINGE 0 ML IV SCH (10:58)
--- NOTE | 2023-04-10 11:36 | Surgery Progress Note ---
Date of Service April 10, 2023 Assessment & Plan (1) Paralytic ileus: (2) Leukocytosis: (3) Colitis: (4) Nausea vomiting and diarrhea: Plan 43-year-old gentleman with progressive diarrhea and decreased bowel movements now appears to have a small large bowel ileus versus colitis. Colonoscopy demonstrated severe colitis most consistent with ulcerative colitis in the left colon, sigmoid colon, rectum. He has been started on prednisone, high-dose. he has been improving over the last few days. Tolerating a clear liquid diet. Plan: No surgical intervention required at this time IV morphine added for severe pain Continue prednisone as directed Advance diet to full liquids and then as tolerated Continue medical management Will need outpatient follow-up with GI for inflammatory bowel disease Admission and Anticipated Discharge Date Admission Date: March 31, 2023 Subjective doing well. Having bowel movements. Tolerating clear liquid diet. No nausea or vomiting. Physical Exam Physical Exam: A&O x3, NAD AFVSS Abdomen: Soft, mild distention, nontender Results & Data Vital Signs (Past 12 Hours) Vital Signs Temp Pulse Resp BP Pulse Ox O2 Del Method 04/10/23 07:06 36.7 C 64 16 117/79 99 Room Air
--- NOTE | 2023-04-10 15:36 | Hospitalist Progress Note ---
Date of Service April 10, 2023 Assessment & Plan (1) Paralytic ileus: Plan: etiology is ulcerative colitis Patient was seen by gastroenterology and had a sigmoid decompression. No evidence of erosion or other acute issues Continue with methylprednisolone. Reduced to once daily. Pain is improved. Patient with bowel movements after MiraLAX and Senokot Surgery is also on board and actively seeing the patient daily patient is feeling better with decreased abdominal swelling, passing flatus, had 1 bowel movement, feeling hungry. Advance diet to full liquid diet Encourage ambulation (2) Colitis: Plan: Likely ulcerative colitis Gastroenterology is following. Patient should follow with outpatient as well Completed course of ceftriaxone and Flagyl Started full liquid diet Decrease the frequency of Solu-Medrol to once daily (3) Nausea vomiting and diarrhea: Plan: Resolved Patient is now requiring Senokot for bowel movement (4) COVID-19: Plan: Incidental finding on admission. No pulmonary symptoms Patient has completed isolation protocol. No further contact precautions are required (5) Hyponatremia: Plan: Resolved (6) Hypokalemia: Plan: Resolved (7) Leg edema: Plan: Patient received few doses of IV Lasix with improvement in leg swelling Most likely secondary to fluid overload Encourage to ambulate and mobilize We will hold off on further doses of Lasix today Ultrasound of the lower extremities negative for DVT. Plan DVT prophylaxis: Continue heparin 5000 units subcutaneously 3 times daily. Patient also encouraged to ambulate regularly. Admission and Anticipated Discharge Date Admission Date: March 31, 2023 Subjective Patient says that he feels better today. He is actually hungry. He says that he had been passing gas and had a bowel movement as well. His belly is not as swollen today. Review of Systems Review of Systems: All systems reviewed & are unremarkable except as noted in Subjective Physical Exam Physical Exam: General: Awake, conversant Heart: S1, S2/regular rate and rhythm, no murmur rubs or gallops Lungs: Clear to auscultation bilaterally. Normal effort Abdomen: Soft, nontender. Sluggish bowel sounds. Very mildly distended. Extremities: No clubbing/cyanosis. 2+ bilateral pitting edema Behavior: Appropriate, cooperative Results & Data Results & Data Vital Signs (Past 12 Hours) Vital Signs Temp Pulse Resp BP Pulse Ox O2 Del Method 04/10/23 14:50 36.3 C L 61 16 117/78 100 Room Air 04/10/23 07:06 36.7 C 64 16 117/79 99 Room Air Laboratory Results Abnormal lab results 04/10/23 04/10/23 04/10/23 Range/Units 00:16 05:44 08:22 BUN/Creatinine Ratio 28.3 H (10-20) Glucose 110 H (70-99(Fasting)) mg/dl POC Glucose 158 H 132 H (70-99) mg/dl Calcium 8.3 L (8.6-10.3) mg/dl Diagnostic Findings KUB X-Ray 04/10/23 07:00 KUB HISTORY: Acute generalized abdominal pain ileus/sbo COMPARISON: 04/08/2023 FINDINGS: Persistent gaseous distention of both the large and small bowel. Dilated small bowel loops measure up tor 4.5 cm, unchanged.r Large bowel loops measure up to approximately 8.3 cm which is also unchanged. No renal calculi. No ureteral calculi. No pneumoperitoneum or pneumatosis. No fracture. IMPRESSION: Stable exam with persistent gaseous distention of the large and small bowel. Findings are again suggestive of ileus with distal obstructive process considered less likely. ACT 112: Negative or not required by law. The above report was generated using voice recognition software. It may contain grammatical, syntax or spelling errors. Electronically signed by: Carlos A Hardy M.D. 04/10/2023 8:30 AM PG Care Time/CCT Total # of Minutes Spent Total Time Spent with Patient: Total time spent is greater than 50% in coordination of care (as documented) at patient's floor/unit and/or counseling patient: Coding Level of Care Code 69938 SUB INP/OBS CARE 2/35MIN Diagnoses Paralytic ileus K56.0 Colitis K52.9 Nausea vomiting and diarrhea R11.2; R19.7 COVID-19 U07.1 Hyponatremia E87.1 Hypokalemia E87.6 Leg edema R60.0
[2023-04-11] MEDS: SENNA 8.6 MG TAB PO SCH (08:00)
[2023-04-11] MEDS: methylPREDNISolone 40 MG in SYRINGE 0 ML IV SCH (08:01)
[2023-04-11 08:41] LABS: Magnesium 2.3 mg/dl (1.7-2.4); Phosphorus 3.2 mg/dl (2.5-4.9)
--- NOTE | 2023-04-11 08:49 | Surgery Progress Note ---
Date of Service April 11, 2023 Assessment & Plan (1) Paralytic ileus: (2) Leukocytosis: (3) Colitis: (4) Nausea vomiting and diarrhea: Plan 43-year-old gentleman with progressive diarrhea and decreased bowel movements now appears to have a small large bowel ileus versus colitis. Colonoscopy demonstrated severe colitis most consistent with ulcerative colitis in the left colon, sigmoid colon, rectum. He has been started on prednisone, high-dose. he has been improving over the last few days. Tolerating a clear liquid diet. Plan: No surgical intervention required at this time IV morphine added for severe pain Continue prednisone as directed Advance diet as tolerated Continue medical management Will need outpatient follow-up with GI for inflammatory bowel disease Will sign off. please call with questions/concerns Admission and Anticipated Discharge Date Admission Date: March 31, 2023 Subjective doing well today. tolerating full liquids. no n/v. continues with BMs Physical Exam Physical Exam: A&O x3, NAD AFVSS Abdomen: Soft, mild distention, nontender Results & Data Vital Signs (Past 12 Hours) Vital Signs Temp Pulse Resp BP Pulse Ox O2 Del Method 04/11/23 07:38 36.9 C 58 L 16 123/78 99 Room Air
--- NOTE | 2023-04-11 15:40 | Hospitalist Progress Note ---
Date of Service April 11, 2023 Assessment & Plan (1) Paralytic ileus: Plan: etiology is ulcerative colitis Patient was seen by gastroenterology and had a sigmoid decompression. No evidence of erosion or other acute issues Continue with methylprednisolone. Reduced to once daily. May discharge on p.o. prednisone Pain is improved. Patient with bowel movements after MiraLAX and Senokot Surgery is also on board and actively seeing the patient daily patient is feeling better with decreased abdominal swelling, passing flatus, had 1 bowel movement, feeling hungry. Advance diet to solid diet today Encourage ambulation If continues to do well, likely discharge tomorrow (2) Colitis: Plan: Likely ulcerative colitis Gastroenterology is following. Patient should follow with outpatient as well Completed course of ceftriaxone and Flagyl Started regular diet today Decrease the frequency of Solu-Medrol to once daily Discharge on p.o. prednisone (3) Nausea vomiting and diarrhea: Plan: Resolved Patient is now requiring Senokot for bowel movement (4) COVID-19: Plan: Incidental finding on admission. No pulmonary symptoms Patient has completed isolation protocol. No further contact precautions are required (5) Hyponatremia: Plan: Resolved (6) Hypokalemia: Plan: Resolved (7) Leg edema: Plan: Patient received few doses of IV Lasix with improvement in leg swelling Most likely secondary to fluid overload Encourage to ambulate and mobilize We will hold off on further doses of Lasix today Ultrasound of the lower extremities negative for DVT. Plan DVT prophylaxis: Continue heparin 5000 units subcutaneously 3 times daily. Patient also encouraged to ambulate regularly. If patient continues regular diet today, likely discharge tomorrow on p.o. prednisone Admission and Anticipated Discharge Date Admission Date: March 31, 2023 Subjective Patient continues to feel better. Tolerated full liquid diet. Had a bowel movement, although he does not feel like he evacuated enough. His belly is still slightly distended but less so than the past few days. Review of Systems Review of Systems: All systems reviewed & are unremarkable except as noted in Subjective Physical Exam Physical Exam: General: Awake, conversant Heart: S1, S2/regular rate and rhythm, no murmur rubs or gallops Lungs: Clear to auscultation bilaterally. Normal effort Abdomen: Soft, nontender. Sluggish bowel sounds. Very mildly distended. Extremities: No clubbing/cyanosis. 1+ bilateral pitting edema Behavior: Appropriate, cooperative Results & Data Results & Data Vital Signs (Past 12 Hours) Vital Signs Temp Pulse Resp BP Pulse Ox O2 Del Method 04/11/23 07:38 36.9 C 58 L 16 123/78 99 Room Air PG Care Time/CCT Total # of Minutes Spent Total Time Spent with Patient: Total time spent is greater than 50% in coordination of care (as documented) at patient's floor/unit and/or counseling patient: Coding Level of Care Code 86334 SUB INP/OBS CARE 2/35MIN Diagnoses Paralytic ileus K56.0 Colitis K52.9 Nausea vomiting and diarrhea R11.2; R19.7 COVID-19 U07.1 Hyponatremia E87.1 Hypokalemia E87.6 Leg edema R60.0
--- NOTE | 2023-04-12 08:33 | Discharge Summary ---
Discharge Summary Date of Service April 12, 2023 Admission HPI Per Admitting Provider Pt is 43 yo M with PMH internal hemorrhoids presenting with diarrhea. Notes onset 3 weeks prior of watery diarrhea and associated bloating, generalized abdominal pain, nausea w/o emesis, subjective fevers, chills. Denies recent travel, sick contacts or change in diet. Over past week his symptoms worsened to include hematochezia and reduced appetite. Reports 4+ movements per day, no relief from imodium. Pt did see PCP on 03/27 who ordered labs and stool studies- WBC 23 w/ neutrophilic predominance, CRP > 10, negative IgA, TTG studies (several other studies still pending), negative stool studies including E Coli and C difficile. Pt's symptoms continued to worsen and he came to ER for evaluation. Pt arrived to ER hemodynamically stable. Initial evaluation significant for WBC 15, Hgb 12.6, Na 132, K 3.4. Negative stool PCR. CTAP suggesting nonspecific colitis although ulcerative colitis in differential, dilatation of ascending and transverse colon without obstruction, large amount of stool in cecum and ascending colon, prominent pericolonic and perirectal lymph nodes which may be reactive but underlying neoplasm hard to exclude. ER interventions include 1L NSS bolus. At present, pt reports continued moderate abdominal pain and diarrhea. He does state he's had intermittent diarrhea and abdominal cramps for much of his life but denies any history of IBD in his family. Did have colonoscopy 6-7 years prior which showed internal hemorrhoids. Admission Exam Per Admitting Provider General: well-appearing, no acute distress HEENT: PERRL, EOMI, conjunctivae clear without injection, anicteric sclerae, moist mucous membranes, clear oropharynx without exudate or erythema Neck: supple, trachea midline, no thyromegaly, no JVD, no cervical lymphadenopathy CV: RRR, normal S1 and S2, no murmurs Resp: CTAB, no increased work of breathing, no crackles or wheezes Abd: Soft, nontender, nondistended, no guarding or rebound, no hepatosplenomegaly, hyperactive bowel sounds MSK: Normal bulk of all four extremities Neuro: AOx3, no focal motor or sensory deficits Skin: no rashes or lesions, warm and dry Ext: no LE peripheral edema or erythema, capillary refill <2s in all four extremities, 2+ LE peripheral pulses b/l Principal Dx & Hospital Course #1 = Principal Diagnosis (1) Paralytic ileus: Etiology is likely ulcerative colitis Patient was seen by gastroenterology and had a sigmoid decompression. No e vidence of erosion or other acute issues Pain is improved. Patient with bowel movements after MiraLAX and Senokot Tolerated solid diet well without issues, having BMs (2) Colitis: Likely ulcerative colitis Completed course of ceftriaxone and Flagyl Methylpred transitioned to oral prednisone with slow taper on discharge (40mg daily to start, decrease by 5mg weekly) Gastroenterology follow up 04/17 (3) Nausea vomiting and diarrhea: Resolved Senna prn constipation (4) COVID-19: Incidental finding on admission. No pulmonary symptoms Patient has completed isolation protocol. No further contact precautions are required (5) Hyponatremia: Resolved (6) Hypokalemia: Resolved (7) Leg edema: Resolved with few doses of IV diuretic and ambulation, US BL LE negative for DVT No diuretics on discharged, advised to follow up with PCP Plan Discharge to home on oral prednisone slow taper Discharge Exam Constitutional WD/WN, vitals as above Respiratory normal respiratory effort, lungs clear to auscultation Cardiovascular RRR, no murmur, no edema Gastrointestinal (Abdomen) normal bowel sounds, soft, nontender, no hepatosplenomegaly Psychiatric A+Ox3, euthymic affect Updated Medication List Medication Instructions Recorded Confirmed Type loperamide 2 mg tablet 2 mg PO DIRECTED PRN Diarrhea 03/29/23 03/29/23 History simethicone 125 mg capsule 125 mg PO DIRECTED PRN GAS 03/29/23 03/29/23 History DISCOMFORT pantoprazole 40 mg tablet,delayed 40 mg PO DAILY 8 weeks #56 tabs 04/12/23 Rx release prednisone 5 mg tablet See Taper PO DIRECTED #252 tabs 04/12/23 Rx sennosides 8.6 mg tablet (Senokot) 8.6 mg PO QAM 30 days #30 tabs 04/12/23 Rx Hospital Stay Data Consultations 03/29/23 19:27 ED Decision to Admit Stat 03/29/23 23:01 Consult Gastroenterology Routine 04/04/23 17:37 Consult General Surgery Routine Procedures Performed Operation Date: 04/05/23 16:30 <No data on this case meets the specified criteria> Diagnostic Imagining Performed 03/29/23 14:35 CT abd pelvis oral and IV con Stat 04/08/23 11:59 US venous duplex leg [US venous doppler LE BI] Urgent Pending Results Patient Have Any Pending Studies at Discharge: No Discharge Instructions Given to Patient (Per Discharging Provider) You were admitted for evaluation of colitis, and found to have evidence of inflammatory bowel disease (ulcerative colitis) on your biopsies. You were started on steroids through your IV, and will be on a steroid taper on discharge (please see the instructions below in medication list). You were also given Senna for constipation, which you can take at home. You developed what is called an ileus, when the bowel slows down due to stress, which improves with time. As you began to improve, you were felt to be safe for discharge home with follow up with a family doctor, and with the GI doctor (GI doctor appointment scheduled for 04/17). Our business case analyst is working on getting you an appointment with a family doctor. If you do not hear from the hospital regarding an appointment by tomorrow, please call [phone] to schedule an appointment with the family medicine clinic. You can request to see a different physician than the one you saw previously, as there are several in that office that have availability. Lastly, I have prescribed pantoprazole, an acid reducing medication, to take while you are on the steroids. Please discuss if you need to continue this with your new family doctor on discharge. Total Time Total Time Spent Total Time Spent (In Minutes): 40 min Coding Level of Care Code 50663 INP/OBS DISCH >30 MIN Diagnoses Paralytic ileus K56.0 Colitis K52.9 Nausea vomiting and diarrhea R11.2; R19.7 COVID-19 U07.1 Hyponatremia E87.1 Hypokalemia E87.6 Leg edema R60.0
[2023-04-12] MEDS: SENNA 8.6 MG TAB PO SCH (10:00)
[2023-04-12] MEDS: methylPREDNISolone 40 MG in SYRINGE 0 ML IV SCH (10:46)
[2023-04-12] MEDS ORDERED: predniSONE 20 MG TAB PO STA (11:19)
== END 2023-04-12 13:49 | disposition home or self-care (01) | DRG 385 ==
LOC: ED 13:20 → 3N 13:20 → SUATTDRO 19:49 → 3N 22:39 → SUATTDRO 03-31 13:57